=== PATIENT | male | born 1955 | race Two or more races ===

== ENCOUNTER 2017-09-05 22:31 | Inpatient (IN) | payer MEDICAID ==
[~2017-09-05] VITALS: Ht 149.9 cm; Wt 76.1 kg
[2017-09-05] MEDS: levETIRAcetam 500 MG TAB PO SCH ×2 (21:00→22:59)
[2017-09-05] MEDS: SODIUM CHLORIDE 0.9% FLUSH 10 ML FLUSH IV FLUSH SCH (21:00)
[2017-09-05] MEDS: GABAPENTIN 300 MG CAP PO SCH (21:00)
[2017-09-05] MEDS: PREGABALIN 75 MG CAP PO SCH (21:00)
[2017-09-05 22:30] VITALS: BP 120/72; PULSE 90; RESP 16; TEMP 98.8; O2SAT 95
[~2017-09-05 22:31] MED LIST: ACETAMINOPHEN 325 MG TAB PO PRN; ASPI-516 CHEW; GABA300C5 PO; KEPP10002 PO; LEVE500 PO; LYRI75CA PO; PANT20 PO; SENN8.6T19; SODIUM CHLORIDE 0.9% FLUSH 10 ML FLUSH IV FLUSH PRN; TYLE325T PO; VIMP150T PO; XARE20TA PO
[2017-09-06] VITALS: BP 109/67; PULSE 95; RESP 16; TEMP 96.7; O2SAT 93
[2017-09-06 08:56] VITALS: BP 105/95; PULSE 92; RESP 18; TEMP 97.5; O2SAT 95
[2017-09-06] MEDS: SODIUM CHLORIDE 0.9% FLUSH 10 ML FLUSH IV FLUSH SCH ×3 (08:57→20:47)
[2017-09-06] MEDS ORDERED: RIVAROXABAN 20 MG TAB PO SCH (09:00)
[2017-09-06] MEDS ORDERED: ASPIRIN 81 MG CHEW TAB CHEW SCH (09:00)
[2017-09-06] MEDS ORDERED: PANTOPRAZOLE SOD 20 MG DELAYED RELEASE TAB PO SCH (09:00)
[2017-09-06] MEDS: levETIRAcetam 500 MG TAB PO SCH ×4 (09:19→20:38)
[2017-09-06] MEDS: PREGABALIN 75 MG CAP PO SCH ×2 (09:19→20:38)
[2017-09-06 09:50] LABS: AUTOMATED NEUTROPHIL # 8.5 TH/MM3 (1.8-7.7); BASOPHIL # 0.1 TH/MM3 (0-0.2); BASOPHIL % 0.6 % (0.0-2.0); EOSINOPHIL # 0.1 TH/MM3 (0-0.4); EOSINOPHIL % 0.8 % (0.0-4.0); HEMATOCRIT 41.3 % (39.0-51.0); HEMO FLAGS DIFF FINAL; LYMPH % 14.1 % (9.0-44.0); LYMPHOCYTE # 1.6 TH/MM3 (1.0-4.8); MEAN CORPUSCULAR HEMOGLOBIN 27.4 PG (27.0-34.0); MEAN CORPUSCULAR HGB CONC 32.6 % (32.0-36.0); NEUT % 76.5 % (16.0-70.0); PLATELET COUNT 431 TH/MM3 (150-450); RED BLOOD COUNT 4.92 MIL/MM3 (4.50-5.90); RED CELL DISTRIBUTION WIDTH 18.6 % (11.6-17.2); WHITE BLOOD COUNT 11.2 TH/MM3 (4.0-11.0)
[2017-09-06 10:10] LABS: CHLORIDE 104 MEQ/L (98-107); POTASSIUM 3.8 MEQ/L (3.5-5.1); SODIUM (NA) 138 MEQ/L (136-145)
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
[2017-09-06 10:14] LABS: ANION GAP 10 MEQ/L (5-15); BLOOD UREA NITROGEN 11 MG/DL (7-18)
[2017-09-06 10:18] LABS: GLOMERULAR FILTRATION RATE 90 ML/MIN (>89)
[2017-09-06] MEDS ORDERED: FUROSEMIDE 40 MG/4 ML VIAL IV PUSH ONE (10:30)
[2017-09-06] MEDS: LACOSAMIDE 50 MG TAB PO SCH ×2 (10:50→20:38)
[2017-09-06] MEDS: SIMETHICONE 125 MG CHEWABLE TAB PO SCH ×3 (11:04→21:49)
[2017-09-06] MEDS: PANTOPRAZOLE SOD 40 MG DELAYED RELEASE TAB PO SCH (11:04)
[2017-09-06 12:00] VITALS: BP 120/72; PULSE 98; RESP 18; TEMP 99; O2SAT 94
[2017-09-06 16:00] VITALS: BP 105/69; PULSE 100; RESP 18; TEMP 98.3; O2SAT 94
--- NOTE | 2017-09-06 17:32 | ECHRPT ---
Indication: SHORTNESS OF BREATH CONCLUSIONS Normal left ventricular size. Wall thickness is normal. The left ventricular systolic function is normal with an estimated ejection fraction in the range of 55-60%. Ziwme-[id number] mitral valve regurgitation. BP: 105 / 95 HR: 92 Rhythm: Sinus, PVCs MEASUREMENTS (Male / Female) Normal Values Technical Quality:Technically difficult study 2D ECHO LV Diastolic Diameter PLAX 4.3 cm 4.2 - 5.9 / 3.9 - 5.3 cm LV Systolic Diameter PLAX 3.2 cm IVS Diastolic Thickness 1.0 cm 0.6 - 1.0 / 0.6 - 0.9 cm LVPW Diastolic Thickness 0.8 cm 0.6 - 1.0 / 0.6 - 0.9 cm LV Relative Wall Thickness 0.4 LVOT Diameter 2.3 cm Aortic Root Diameter 3.1 cm LA Systolic Diameter LX 1.7 cm 3.0 - 4.0 / 2.7 - 3.8 cm DOPPLER AV Peak Velocity 105.0 cm/s AV Peak Gradient 4.4 mmHg AV Mean Gradient 3.0 mmHg AV Velocity Time Integral 13.7 cm LVOT Peak Velocity 69.2 cm/s LVOT Peak Gradient 1.9 mmHg LVOT Velocity Time Integral 8.6 cm AV Area Cont Eq vti 2.6 cm AV Area Cont Eq pk 2.7 cm Mitral E Point Velocity 70.1 cm/s Mitral A Point Velocity 99.7 cm/s Mitral E to A Ratio 0.7 LV E' Lateral Velocity 10.5 cm/s Mitral E to LV E' Lateral Ratio 6.7 LV E' Septal Velocity 4.2 cm/s Mitral E to LV E' Septal Ratio 16.7 PV Peak Velocity 41.4 cm/s PV Peak Gradient 0.7 mmHg FINDINGS LEFT VENTRICLE Normal left ventricular size. Wall thickness is normal. The left ventricular systolic function is normal with an estimated ejection fraction in the range of 55-60%. RIGHT VENTRICLE Normal right ventricular size and systolic function. LEFT ATRIUM The left atrial size is normal. RIGHT ATRIUM The right atrial size is normal. ATRIAL SEPTUM Normal atrial septal thickness without atrial level shunting by limited color doppler interrogation. AORTA The aortic root and proximal ascending aorta are normal in size on limited imaging. MITRAL VALVE [id number] mitral valve regurgitation. AORTIC VALVE Trileaflet aortic valve. No aortic valve stenosis or regurgitation. TRICUSPID VALVE Structurally normal tricuspid valve. No tricuspid valve stenosis or regurgitation. PULMONARY VALVE The pulmonary valve is not well visualized. VESSELS The inferior vena cava is normal in size. PERICARDIUM No pericardial effusion. Felipa Navarro MD, FACC (Electronically Signed) Final Date:06 September 2017 17:31
[2017-09-06] MEDS: FUROSEMIDE 20 MG/2 ML VIAL IV PUSH SCH (18:06)
[2017-09-06 20:00] VITALS: BP 96/64; PULSE 86; RESP 20; TEMP 98.6; O2SAT 94
[2017-09-06 20:20] LABS: HEMOGLOBIN A1a 1.1 %
[2017-09-06 20:21] LABS: HEMOGLOBIN A1b 0.9 %; HEMOGLOBIN Ao 85.1 %; HEMOGLOBIN LA1C 2.1 %; HEMOGLOBIN P3 3.7 %
[2017-09-06] MEDS: GABAPENTIN 300 MG CAP PO SCH (20:38)
[2017-09-06] MEDS ORDERED: ENOXAPARIN SODIUM 80 MG/0.8 ML SYRINGE SQ SCH (21:00)
[2017-09-07] VITALS: BP 104/62; PULSE 85; RESP 20; TEMP 97.8; O2SAT 95
[2017-09-07] MEDS: SIMETHICONE 125 MG CHEWABLE TAB PO SCH (06:14)
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
[2017-09-07 08:00] VITALS: BP 99/64; PULSE 87; RESP 16; TEMP 97.1; O2SAT 94
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
[2017-09-07] MEDS ORDERED: APIXABAN 5 MG TABLET PO SCH (09:15)
[2017-09-07] MEDS ORDERED: INFLUENZA VIRUS VACCINE (QUADRIVALENT) 0.5 ML SYR IM ONE (10:00)
[2017-09-07] MEDS: FUROSEMIDE 20 MG/2 ML VIAL IV PUSH SCH (10:06)
[2017-09-07] MEDS: levETIRAcetam 500 MG TAB PO SCH ×2 (10:06)
[2017-09-07] MEDS: PREGABALIN 75 MG CAP PO SCH (10:07)
[2017-09-07] MEDS: LACOSAMIDE 50 MG TAB PO SCH (10:07)
[2017-09-07] MEDS: PANTOPRAZOLE SOD 40 MG DELAYED RELEASE TAB PO SCH (10:07)
[2017-09-07] MEDS: SODIUM CHLORIDE 0.9% FLUSH 10 ML FLUSH IV FLUSH SCH (10:08)
[2017-09-07 12:00] VITALS: BP 97/77; PULSE 87; RESP 16; TEMP 98.1; O2SAT 97
[2017-09-07] MEDS ORDERED: LEVE500 PO (12:18)
[2017-09-07] MEDS ORDERED: FURO1TAB62 PO (12:18)
[2017-09-07] MEDS ORDERED: POTA10CA PO (12:18)
[2017-09-07] MEDS ORDERED: VIMP150T PO (12:24)
--- NOTE | 2017-09-07 12:25 | HHI.PR ---
Subjective Remarks Patient states that he is feeling fine. Denies headache. Denies groin pain. I discussed with his sister at bedside. She is unaware of the history but kind his DVT/PE. She is not aware how long ago it was. Patient has been living with her for the past 4 or 5 months. He does take Xarelto daily. Objective Vitals Vital Signs Date Time Temp Pulse Resp B/P (MAP) Pulse Ox O2 Delivery O2 Flow Rate FiO2 09/07/17 11:36 18 09/07/17 11:36 18 09/07/17 08:00 97.1 87 16 99/64 (76) 94 09/07/17 00:00 97.8 85 20 104/62 (76) 95 09/06/17 20:00 98.6 86 20 96/64 (75) 94 09/06/17 16:00 98.3 100 18 105/69 (81) 94 I/O 09/06/17 09/06/17 09/06/17 09/07/17 09/07/17 09/07/17 07:00 15:00 23:00 07:00 15:00 23:00 Intake Total 480 ml 960 ml 240 ml Output Total 250 ml 300 ml Balance 230 ml 660 ml 240 ml Intake Oral 480 ml 960 ml 240 ml Output Urine Total 250 ml 300 ml # Voids 1 2 3 1 # Bowel Movements 0 3 0 1 Result Diagram: 09/06/1716 09/06/1716 Objective Remarks GENERAL: Well-nourished, well-developed patient. SKIN: Warm and dry. HEAD: Normocephalic. Patient has ecchymosis of the left ear. EYES: No scleral icterus. No injection or drainage. NECK: Supple, trachea midline. No JVD or lymphadenopathy. CARDIOVASCULAR: Regular rate and rhythm without murmurs, gallops, or rubs. RESPIRATORY: Breath sounds equal bilaterally. No accessory muscle use. GASTROINTESTINAL: Abdomen soft, non-tender, nondistended. EXTREMITIES: Trace pedal edema. Patient also has small approximately 4 x 4 cm area ecchymosis in the left groin. NEUROLOGICAL: Awake, alert, and oriented x 3. Non-focal. A/P Assessment and Plan -Breakthrough seizure. Appreciate neurology seeing the patient. Patient's sister felt the seizure activity was precipitated by a small argument they had a CT tends to get upset prior to his seizures. Patient is to be increase Vimpat from 150 to 200 mg twice a day and continue Keppra 1500 mg twice a day. I did review the EEG which showed bilateral sharp waves on the right hemisphere as well as the left temporal region but no active seizures. I discussed with neurology Dr. Houston who recommends the patient continue on his regimen of Keppra 1500 mg twice a day and Vimpat 150 mg twice a day. He would like the patient to follow-up with him in his office. Sister is agreeable to the plan. Patient will be discharged home today. -Pedal edema. 2-D echocardiogram reviewed and shows preserved left ventricular ejection fraction. Thus this is likely dependent edema. Discussed with patient and sister to keep his legs elevated. Also prescribed low-dose Lasix which can be used as needed for pedal edema. -Left groin ecchymosis, small hemorrhage seen on abdominal CT scan. Patient did have a blood draw in that area which is the likely source of ecchymosis. He does take Xarelto. Sister is unaware how long it has been since he had the DVT/PE. I do recommend that the patient hold on the Xarelto for 2-3 days. To ensure no further bleeding. -Abdominal pain - due to constipation likely, now resolved. had BM. continue bowel regimen. DC home today. F/u with Dr. Houston. Palma Mora MD Sep 07, 2017 12:25
[2017-09-07] MEDS ORDERED: VIMP200T PO (13:20)
== END 2017-09-07 13:06 | disposition home or self-care (01) | DRG 101 ==
LOC: PHEDDLT 22:31 → PH3B 22:33 → OBSVTOIN 09-07 09:14
PROVIDERS: ADMIT Family Medicine; ATTEND Family Medicine
DX: G40.909 Epilepsy, unspecified, not intractable, without status epilepticus (principal); I69.351 Hemiplegia and hemiparesis following cerebral infarction affecting right dominant side; K44.9 Diaphragmatic hernia without obstruction or gangrene; K59.00 Constipation, unspecified; G89.29 Other chronic pain; M79.606 Pain in leg, unspecified; R60.0 Localized edema; S30.1XXA Contusion of abdominal wall, initial encounter; Z95.828 Presence of other vascular implants and grafts; Z86.718 Personal history of other venous thrombosis and embolism; Z86.711 Personal history of pulmonary embolism; Z87.828 Personal history of other (healed) physical injury and trauma; Z79.01 Long term (current) use of anticoagulants; Z23 Encounter for immunization
CPT/HCPCS: 70450; 71010; 74176; 80048; 80053; 81001; 83036; 83690; 83880; 84132; 84443; 84484; 85025; 85610; 85730; 90471; 90686; 93005; 93306; 95819; 96372; 96374; 96376; 99285; G0008; G0378; G8987-GP; G8988-GP; J1650; J1940; J2060; Q2038

== ENCOUNTER 2017-11-18 21:00 | Observation (INO) | payer MEDICAID ==
[~2017-11-18] VITALS: Ht 149.9 cm; Wt 76.6 kg
[~2017-11-18 21:00] MED LIST changes: -ACETAMINOPHEN 325 MG TAB PO PRN; +ASPI-183 PO; -ASPI-516 CHEW; +FERR325T18 PO; +FURO1TAB62 PO; -KEPP10002 PO; +LEVE10003 PO; +LYRI100C PO; +ONDANSETRON HCL 4 MG/2 ML VIAL IV PUSH PRN; +POTA10CA PO; -VIMP150T PO; +VIMP200T PO
[2017-11-18 21:27] VITALS: O2SAT 96
[2017-11-18 21:45] VITALS: BP 96/65; PULSE 77; RESP 20; TEMP 98.4; O2SAT 95
[2017-11-18 21:54] VITALS: PULSE 79
[2017-11-18 21:56] LABS: TROPONIN I LESS THAN 0.02 NG/ML (0.02-0.05)
[2017-11-18] MEDS: LACOSAMIDE 50 MG TAB PO SCH (23:04)
[2017-11-18] MEDS: FERROUS SULFATE 325 MG (65 MG ELEMENTAL IRON) TAB PO SCH (23:05)
[2017-11-18] MEDS: ACETAMINOPHEN 500 MG CPLT PO PRN (23:05)
[2017-11-18] MEDS: GABAPENTIN 300 MG CAP PO SCH (23:05)
[2017-11-18] MEDS: levETIRAcetam 500 MG TAB PO SCH (23:06)
[2017-11-18] MEDS: SODIUM CHLORIDE 0.9% FLUSH 10 ML FLUSH IV FLUSH SCH (23:06)
[2017-11-19] VITALS (7 sets, daily range): BP systolic 99–119; BP diastolic 53–69; PULSE 73–82; RESP 16–20; TEMP 96.1–98.6; O2SAT 91–95
[2017-11-19 00:30] LABS: TROPONIN I LESS THAN 0.02 NG/ML (0.02-0.05)
--- NOTE | 2017-11-19 08:41 | HHI.HP ---
HPI Service [facility] Primary Care Physician Florentino Fournier M.D. Admission Diagnosis Chest pain Diagnoses: (1) Chest pain Chief Complaint: Chest pain Travel History International Travel<30 Days: No Contact w/Intl Traveler <30 Da: No Traveled to Known Affected Are: No History of Present Illness This is a 62-year-old male patient with a known medical history of traumatic brain injury as a child and seizure history who presented to the ED with complaints of left-sided chest pain and shaking tremor for two hours. Patient is Yakut speaking and an putty and patch worker was used. Patient states that the pain is located in his midsternal chest, characterized as a pressure sensation, radiates down his right and left leg. Denied any associated shortness of breath , nausea, vomiting or diaphoresis. Spoke to at bedside who states that patient suffers from chronic pain normally worse in his right lower extremity. But over the past two weeks she says he's been having increasing and worsening pain in his right chest, arms and abdomen. Denies any recent illness including fever, chills, cough, shortness of breath, nausea, vomiting or diarrhea. 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 Review of Systems Constitutional: DENIES: Fatigue, Fever Eyes: DENIES: Blurred vision, Diplopia Respiratory: DENIES: Cough, Sputum production, Shortness of breath Cardiovascular: COMPLAINS OF: Chest pain, DENIES: Palpitations Gastrointestinal: COMPLAINS OF: Abdominal pain, DENIES: Black stools, Bloody stools, Constipation, Diarrhea, Nausea, Vomiting Immunologic/allergic: DENIES: Eczema Neurologic: DENIES: Abnormal gait Psychiatric: COMPLAINS OF: Anxiety Except as stated in HPI: all other systems reviewed are Neg Past Family Social History Past Medical History Arthritis Anxiety and depression Hyperlipidemia History of CVA with right sided weakness residual Hiatal hernia History of seizures History of migraines Past Surgical History Right thigh felt her Brain surgery as a child Reported Medications Active Lasix (Furosemide) 20 Mg Tab 20 Mg PO DAILY PRN Reported Ferrous Sulfate 325 Mg (65 Mg Iron) Tablet 325 Mg PO TIDPC Gabapentin 300 Mg Cap 300 Mg PO HS Vimpat (Lacosamide) 200 Mg Tab Mg PO Lyrica (Pregabalin) 100 Mg Cap 100 Mg PO TID Levetiracetam 1,000 Mg Tab 1,500 Mg PO BID Aspirin 325 Mg Tab 325 Mg PO DAILY Xarelto (Rivaroxaban) 20 Mg Tab 20 Mg PO DAILY Protonix (Pantoprazole Sodium) 20 Mg Tab 20 Mg PO DAILY Allergies: Coded Allergies: No Known Allergies (Unverified , 09/05/17) Active Ordered Medications Current Medications Medications (Trade) Dose Ordered Sig/Jacey Route Start Time Stop Time Status Last Admin (NS Flush) 2 ml UNSCH PRN IV FLUSH 11/18/17 18:15 (NS Flush) 2 ml BID IV FLUSH 11/18/17 21:00 11/19/17 10:25 (Tylenol) 500 mg Q4H PRN PO 11/18/17 18:15 11/19/17 10:24 (Zofran Inj) 4 mg Q6H PRN IV PUSH 11/18/17 18:15 (Ferrous Sulfate) 325 mg TIDPC PO 11/18/17 18:30 11/19/17 10:25 (Neurontin) 300 mg HS PO 11/18/17 21:00 11/18/17 23:05 (Keppra) 1,500 mg BID PO 11/18/17 21:00 11/19/17 10:25 (Protonix) 20 mg DAILY PO 11/19/17 09:00 11/19/17 10:25 (Lyrica) 100 mg TID PO 11/19/17 09:00 11/19/17 10:25 (Xarelto) 20 mg DAILY PO 11/19/17 09:00 11/19/17 10:25 (Vimpat) 150 mg BID PO 11/18/17 21:00 11/18/17 23:04 (Aspirin Chew) 81 mg DAILY CHEW 11/19/17 09:00 11/19/17 10:25 ( Gastroview Liq) 18 ml ONCE ONCE PO 11/19/17 12:00 11/19/17 12:01 Family History Denies any significant family medical history. Social History Denies any use of tobacco, alcohol or illicit drugs. Physical Exam Vital Signs Vital Signs Date Time Temp Pulse Resp B/P (MAP) Pulse Ox O2 Delivery O2 Flow Rate FiO2 11/19/17 04:00 98.6 76 20 104/60 (75) 95 11/19/17 00:00 97.8 73 20 108/57 (74) 94 11/18/17 21:54 79 11/18/17 21:45 98.4 77 20 96/65 (75) 95 11/18/17 21:27 96 Nasal Cannula 2.00 11/18/17 21:15 95 Nasal Cannula 2.00 Physical Exam GENERAL: Well-nourished, well-developed patient in NAD. Yakut speaking SKIN: Warm and dry. No rash. HEAD: Normocephalic. Atraumatic. EYES: Pupils equal and round. No scleral icterus. No injection or drainage. ENT: No nasal bleeding or discharge. Mucous membranes pink and moist. NECK: Supple. Trachea midline. CARDIOVASCULAR: Regular rate and rhythm. S1, S2 noted. No murmur appreciated. No reproducible chest pain to palpation. RESPIRATORY: No accessory muscle use. Clear to auscultation. Breath sounds equal bilaterally. GASTROINTESTINAL: Abdomen soft. Round. Tenderness to palpation in right upper quadrant, Aguilar sign positive. Normoactive bowel sounds x4. MUSCULOSKELETAL: No obvious deformities. Extremities without clubbing, cyanosis , or edema. NEUROLOGICAL: Awake and alert. No obvious cranial nerve deficits. Motor grossly within normal limits. 5/5 muscle strength in bilateral upper and lower extremities. Normal speech. PSYCHIATRIC: Appropriate mood and affect; insight and judgment normal. Laboratory Laboratory Tests Test 11/18/17 21:25 11/19/17 00:00 11/19/17 05:45 Total Creatine Kinase 42 42 Troponin I LESS THAN 0.02 LESS THAN 0.02 Imaging Last Impressions Myocardial Perfusion Scan Nuc Med 11/19/17 0000 Signed Impressions: Service Date/Time: Sunday, November 19, 2017 11:32 - CONCLUSION: Fixed defect inferior wall suggesting infarct with minimal wall hypokinesis.. RISK CATEGORY : Low (<1%% Annual Mortality Rate) William Darnell MD FACR Abdomen/Pelvis CT 11/19/17 0000 Signed Impressions: Service Date/Time: Sunday, November 19, 2017 12:35 - CONCLUSION: 1. Moderate sized hiatal hernia. 2. Atelectatic changes in the left lower lobe. 3. Minimal pericardial effusion. 4. Enlargement of the prostate. 5. Incidental IVC filter. 6. No findings to indicate bowel obstruction. Willi Darnell MD Septic Shock Reassessment Septic shock perfusion: reassessment completed Caprini VTE Risk Assessment Caprini VTE Risk Assessment: No/Low Risk (score <= 1) Caprini Risk Assessment Model Point Value = 1 Point Value = 2 Point Value = 3 Point Value = 5 Age 41-60 Minor surgery BMI > 25 kg/m2 Swollen legs Varicose veins or History of unexplained or recurrent spontaneous Oral contraceptives or hormone replacement Sepsis (< 1 month) Serious lung disease, including pneumonia (< 1 month) Abnormal pulmonary function Acute myocardial infarction Congestive heart failure (< 1 month) History of inflammatory bowel disease Medical patient at bed rest Age 61-74 Arthroscopic surgery Major open surgery (> 45 min) Laparoscopic surgery (> 45 min) Malignancy Confined to bed (> 72 hours) Immobilizing plaster cast Central venous access Age >= 75 History of VTE Family history of VTE Factor V Leiden Prothrombin [id number] Lupus anticoagulant Anticardiolipin antibodies Elevated serum homocysteine Heparin-induced thrombocytopenia Other congenital or acquired thrombophilia Stroke (< 1 month) Elective arthroplasty Hip, pelvis, or leg fracture Acute spinal cord injury (< 1 month) Prophylaxis Regimen Total Risk Factor Score Risk Level Prophylaxis Regimen 0-1 Low Early ambulation 2 Moderate Order ONE of the following: *Sequential Compression Device (SCD) *Heparin 5000 units SQ BID 3-4 Higher Order ONE of the following medications: *Heparin 5000 units SQ TID *Enoxaparin/Lovenox 40 mg SQ daily (WT < 150 kg, CrCl > 30 mL/min) *Enoxaparin/Lovenox 30 mg SQ daily (WT < 150 kg, CrCl > 10-29 mL/min) *Enoxaparin/Lovenox 30 mg SQ BID (WT < 150 kg, CrCl > 30 mL/min) AND/OR *Sequential Compression Device (SCD) 5 or more Highest Order ONE of the following medications: *Heparin 5000 units SQ TID (Preferred with Epidurals) *Enoxaparin/Lovenox 40 mg SQ daily (WT < 150 kg, CrCl > 30 mL/min) *Enoxaparin/Lovenox 30 mg SQ daily (WT < 150 kg, CrCl > 10-29 mL/min) *Enoxaparin/Lovenox 30 mg SQ BID (WT < 150 kg, CrCl > 30 mL/min) AND *Sequential Compression Device (SCD) Assessment and Plan Problem List: (1) Chest pain ICD Code: R07.9 - Chest pain, unspecified Plan: Patient has been admitted to the chest pain center for observation. Serial EKGs and serial troponins have been ordered for ruling out ACS purposes. Serial troponins are all flat. Lipid panel is normal. EKG reviewed showing normal sinus rhythm, controlled heart rate, no ST changes to indicate ischemia. Chest pain has resolved. Although patient still complains of right upper quadrant abdominal pain. Supplemental O2 as needed. Chest x-ray reviewed showing no acute cardiopulmonary disease Patient will undergo a Lexiscan to further rule out any presence of ischemia. Further hospitalization and treatment plan will depend on nuclear imaging results. Patient is understanding of plan at this time. (2) Abdominal pain ICD Code: R10.9 - Unspecified abdominal pain Plan: CT abdomen/pelvis performed and reviewed showing moderate hiatal hernia. Spoke to general surgery about patient condition and OK to follow up with GI in the outpatient setting for possible EGD. Abdominal pain has improved. Will give him viscous lidocaine, Zantac and PPI. Recommendations to follow up with GI in the outpatient setting. DVT: SCDs. Xarelto. Assessment and Plan Nuclear stress test performed showing fixed defect inferior wall suggesting infarct with minimal wall hypokinesis. No redistribution to suggest ischemia. Bianca Lo Nov 19, 2017 08:41
--- NOTE | 2017-11-19 08:41 | EKG ---
Date Performed: 11/18/2017 Time Performed: 23:35:05 PTAGE: 62 years EKG: Sinus rhythm WITH OCCASIONAL VENTRICULAR PREMATURE COMPLEXES BORDERLINE LEFT AXIS DEVIATION BORDERLINE ECG PREVIOUS TRACING : 11/18/2017 21.13 No change from previous tracing noted. DOCTOR: Renan Randall Interpretating Date/Time 11/19/2017 08:41:13
[2017-11-19] MEDS: LACOSAMIDE 50 MG TAB PO SCH ×2 (09:00→20:34)
[2017-11-19] MEDS ORDERED: ASPIRIN 325 MG TAB PO SCH (09:00)
[2017-11-19] MEDS ORDERED: PNEUMOCOCCAL POLYVALENT INJ 25 MCG/0.5 ML SYR IM ONE (10:00)
[2017-11-19] MEDS: ACETAMINOPHEN 500 MG CPLT PO PRN (10:24)
[2017-11-19] MEDS: RIVAROXABAN 20 MG TAB PO SCH (10:25)
[2017-11-19] MEDS: levETIRAcetam 500 MG TAB PO SCH ×2 (10:25→20:35)
[2017-11-19] MEDS: ASPIRIN 81 MG CHEW TAB CHEW SCH (10:25)
[2017-11-19] MEDS: FERROUS SULFATE 325 MG (65 MG ELEMENTAL IRON) TAB PO SCH ×3 (10:25→17:47)
[2017-11-19] MEDS: PANTOPRAZOLE SOD 20 MG DELAYED RELEASE TAB PO SCH (10:25)
[2017-11-19] MEDS: SODIUM CHLORIDE 0.9% FLUSH 10 ML FLUSH IV FLUSH SCH ×2 (10:25→20:40)
[2017-11-19] MEDS: PREGABALIN 100 MG CAP PO SCH ×3 (10:25→17:48)
[2017-11-19 10:31] LABS: CHOLESTEROL/ HDL RATIO 4.64 RATIO; HDL CHOLESTEROL 37.5 MG/DL (40.0-60.0)
[2017-11-19] MEDS ORDERED: REGADENOSON INJ 0.4 MG/5 ML SYR IV ONE (11:41)
[2017-11-19] MEDS ORDERED: DIATRIZOATE MEGLUM/DIATRIZOATE SOD 9 ML CUP PO ONE ×2 (12:00→15:00)
[2017-11-19] MEDS ORDERED: IOHEXOL 350 MG/ML 10 ML VIAL (for RAD DIAG) IVCONTRAST ONE (12:56)
--- NOTE | 2017-11-19 13:00 | RADRPT ---
EXAM DATE/TIME: 11/19/2017 11:32 [facility] COMPARISON: No previous studies available for comparison. INDICATIONS : Left sided chest pain. Angina. DOSE: 25.4 mCi Tc99m Myoview at stress. 8.5 mCi Tc99m Myoview at rest. 0.4 mg Lexiscan STRESS SYMPTOMS: Dyspnea and nausea. EJECTION FRACTION: 64% MEDICAL HISTORY : Stroke. Traumatic brain injury. SURGICAL HISTORY : Brain. ENCOUNTER: Initial ACUITY: 1 day PAIN SCALE: 5/10 LOCATION: Left chest TECHNIQUE: The patient underwent pharmacologic stress with infusion of prescribed dose. Continuous ECG tracing was monitored during stress. Gated SPECT imaging was performed after stress and conventional SPECT i maging was performed at rest. The examination was performed on a SPECT/CT scanner, both attenuation and non-corrected datasets were reviewed. FINDINGS: Large fixed defect is seen in the inferior septal wall extending to the base. There is no redistribu tion suggest ischemia. Moderate gut activity does obscure the inferior wall. CONCLUSION: Fixed defect inferior wall suggesting infarct with minimal wall hypokinesis.. RISK CATEGORY: Low (<1% Annual Mortality Rate) William Darnell MD FACR on November 19, 2017 at 12:57 Board Certified Radiologist. This report was verified electronically.
--- NOTE | 2017-11-19 13:14 | RADRPT ---
EXAM DATE/TIME: 11/19/2017 12:35 [facility] COMPARISON: CT BRAIN W/O CONTRAST, November 18, 2017, 15:08. INDICATIONS : Abdominal distention. IV CONTRAST: 80 cc Omnipaque 350 (iohexol) IV ORAL CONTRAST: No oral contrast ingested. RADIATION DOSE: 13.25 CTDIvol (mGy) MEDICAL HISTORY : Cerebrovascular disease. Seizures. Hernia, hiatal.Traumatic brain injury. SURGICAL HISTORY : Brain surgery. ENCOUNTER: Initial ACUITY: 1 day PAIN SCALE: 7/10 LOCATION: Abdomen. TECHNIQUE: Volumetric scanning of the abdomen and pelvis was performed. Using automated exposure control and ad justment of the mA and/or kV according to patient size, radiation dose was kept as low as reasonably achievable to obtain optimal diagnostic quality images. DICOM format image data is available electro nically for review and comparison. FINDINGS: Imaging through the lung bases demonstrates a large hiatal hernia. There is moderate atelectatic zimmer ge in the lung bases. There is minimal pericardial effusion. The appearance of the liver, spleen, pancreas, adrenal glands and kidneys is within normal limits. The abdominal aorta is normal in caliber. Note is made of an IVC filter. There is no free air. There is no free fluid. The loops of small and large bowel in the upper abdomen are unremarkable. There is no free fluid within the pelvis. No iliac or inguinal adenopathy is seen. The loops of small and large bowel within the pelvis are unremarkable. The prostate is enlarged measuring 5.1 x 4.0 cm. There is central calcification. There degenerative changes within the spine. CONCLUSION: 1. Moderate sized hiatal hernia. 2. Atelectatic changes in the left lower lobe. 3. Minimal pericardial effusion. 4. Enlargement of the prostate. 5. Incidental IVC filter. 6. No findings to indicate bowel obstruction. Willi Darnell MD on November 19, 2017 at 13:08 Board Certified Radiologist. This report was verified electronically.
--- NOTE | 2017-11-19 13:27 | TR ---
Date Performed: 11/19/2017 Time Performed: 11:54:44 DOCTOR: Chago Crawley DRUG LIST: CLINICAL HISTORY: CHEST PAIN REASON FOR TEST: Chest pain REASON FOR ENDING: OBSERVATION: CONCLUSION: Lexiscan stress test was performed under standard four minute protocol. Radionuclid e was injected one minute prior to ending the test. No electrocardiographic abormalities were present to suggest ischemia. Nuclear imaging and interpretation are pending. COMMENTS:
--- NOTE | 2017-11-19 13:42 | EKG ---
Date Performed: 11/18/2017 Time Performed: 21:13:13 PTAGE: 62 years EKG: Sinus rhythm MARKED LEFT AXIS DEVIATION ABNORMAL ECG Compared to PREVIOUS TRACING , marked baseline artifact has resolved. DOCTOR: Chago Crawley Interpretating Date/Time 11/19/2017 13:40:53
[2017-11-19] MEDS ORDERED: SENNOSIDES 8.6 MG TAB PO PRN (15:30)
[2017-11-19] MEDS ORDERED: BISACODYL 10 MG SUPP RECTAL PRN (15:30)
[2017-11-19] MEDS ORDERED: MAGNESIUM HYDROXIDE SUSP 30 ML CUP PO PRN (15:30)
[2017-11-19] MEDS ORDERED: LIDOCAINE VISCOUS 2% SOLN 15 ML UDC SWISH-SWAL PRN (16:00)
--- NOTE | 2017-11-19 16:21 | HHI.FF ---
Face to Face Verification Diagnosis: (1) Chest pain (2) Abdominal pain Home Health Nursing Order: Medical education Signs/symptoms of disease process Medication education-adverse effect Nursing assessment with vital signs Home Health Aide Order: To Assist In: Bathing and personal care I have seen patient Manfred Stern on 11/19/17. My clinical findings support the need for the requested home health care services because: Ltd mobility - disease progression Limited ability to care for self I certify that my clinical findings support that this patient is homebound because: Impaired cognitive ability/safety Unsteady gait/balance Bianca Lo Nov 19, 2017 16:21
[2017-11-19] MEDS ORDERED: Ranitidine Liq PO (16:23)
[2017-11-19] MEDS ORDERED: PERI PO (16:23)
[2017-11-19] MEDS ORDERED: LIDO2SOL11 SWISH-SWAL (16:23)
[2017-11-19] MEDS: FAMOTIDINE 20 MG TAB PO SCH (20:34)
[2017-11-19] MEDS: GABAPENTIN 300 MG CAP PO SCH (20:34)
[2017-11-19] MEDS: DOCUSATE SODIUM 50 MG/SENNA 8.6 MG TAB PO SCH (20:34)
[2017-11-20] VITALS (8 sets, daily range): BP systolic 102–120; BP diastolic 56–70; PULSE 76–81; RESP 16–18; TEMP 96.8–98.8; O2SAT 90–96
[2017-11-20] MEDS: FAMOTIDINE 20 MG TAB PO SCH ×2 (08:46→21:59)
[2017-11-20] MEDS: ASPIRIN 81 MG CHEW TAB CHEW SCH (08:46)
[2017-11-20] MEDS: PREGABALIN 100 MG CAP PO SCH ×3 (08:46→17:35)
[2017-11-20] MEDS: RIVAROXABAN 20 MG TAB PO SCH (08:46)
[2017-11-20] MEDS: levETIRAcetam 500 MG TAB PO SCH ×2 (08:47→21:59)
[2017-11-20] MEDS: FERROUS SULFATE 325 MG (65 MG ELEMENTAL IRON) TAB PO SCH ×3 (08:47→17:34)
[2017-11-20] MEDS: DOCUSATE SODIUM 50 MG/SENNA 8.6 MG TAB PO SCH ×2 (08:47→21:59)
[2017-11-20] MEDS: SODIUM CHLORIDE 0.9% FLUSH 10 ML FLUSH IV FLUSH SCH ×2 (08:48→21:59)
[2017-11-20] MEDS: PANTOPRAZOLE SOD 20 MG DELAYED RELEASE TAB PO SCH (08:48)
[2017-11-20] MEDS: LACOSAMIDE 50 MG TAB PO SCH ×2 (08:48→21:58)
--- NOTE | 2017-11-20 10:50 | HHI.PR ---
Subjective Remarks Follow-up left-sided chest pain and abdominal pain. Should seen and examined, lying in bed comfortably sleeping. Awakens to voice, does complain of continued abdominal pain to palpation, more mild in nature. No documented bowel movement, continue bowel regimen. Objective Vitals Vital Signs Date Time Temp Pulse Resp B/P (MAP) Pulse Ox O2 Delivery O2 Flow Rate FiO2 11/20/17 09:30 Room Air 2.00 21 11/20/17 08:00 98.2 81 16 120/62 (81) 93 11/20/17 04:00 98.8 76 16 104/62 (76) 90 11/20/17 00:00 98.5 78 16 102/63 (76) 94 11/19/17 20:32 93 21 11/19/17 20:00 82 11/19/17 20:00 Room Air 11/19/17 20:00 96.1 80 18 100/53 (69) 91 11/19/17 18:54 18 11/19/17 14:01 97.0 80 18 119/69 (86) 95 11/19/17 11:51 Nasal Cannula 2.00 11/19/17 11:31 18 11/19/17 11:00 94 Nasal Cannula 2.00 I/O 11/19/17 11/19/17 11/19/17 11/20/17 11/20/17 11/20/17 07:00 15:00 23:00 07:00 15:00 23:00 Intake Total 60 ml 120 ml Output Total 700 ml 400 ml Balance 60 ml -700 ml -280 ml Intake Oral 60 ml 120 ml Output Urine Total 700 ml 400 ml # Voids 0 1 # Bowel Movements 0 Imaging Last Impressions Myocardial Perfusion Scan Nuc Med 11/19/17 0000 Signed Impressions: Service Date/Time: Sunday, November 19, 2017 11:32 - CONCLUSION: Fixed defect inferior wall suggesting infarct with minimal wall hypokinesis.. RISK CATEGORY : Low (<1%% Annual Mortality Rate) William Darnell MD FACR Abdomen/Pelvis CT 11/19/17 0000 Signed Impressions: Service Date/Time: Sunday, November 19, 2017 12:35 - CONCLUSION: 1. Moderate sized hiatal hernia. 2. Atelectatic changes in the left lower lobe. 3. Minimal pericardial effusion. 4. Enlargement of the prostate. 5. Incidental IVC filter. 6. No findings to indicate bowel obstruction. Willi Darnell MD Objective Remarks GENERAL: Well-nourished, well-developed patient in NAD. Amharic speaking SKIN: Warm and dry. No rash. HEAD: Normocephalic. Atraumatic. EYES: Pupils equal and round. No scleral icterus. No injection or drainage. ENT: No nasal bleeding or discharge. Mucous membranes pink and moist. NECK: Supple. Trachea midline. CARDIOVASCULAR: Regular rate and rhythm. S1, S2 noted. No murmur appreciated. No reproducible chest pain to palpation. RESPIRATORY: No accessory muscle use. Clear to auscultation. Breath sounds equal bilaterally. GASTROINTESTINAL: Abdomen soft. Round. Tenderness to palpation in right upper quadrant, Aguilar sign positive. Normoactive bowel sounds x4. MUSCULOSKELETAL: No obvious deformities. Extremities without clubbing, cyanosis , or edema. NEUROLOGICAL: Awake and alert. No obvious cranial nerve deficits. Motor grossly within normal limits. 5/5 muscle strength in bilateral upper and lower extremities. Normal speech. PSYCHIATRIC: Appropriate mood and affect; insight and judgment normal. A/P Problem List: (1) Chest pain ICD Code: R07.9 - Chest pain, unspecified Plan: Patient has been admitted to the chest pain center for observation. Serial EKGs and serial troponins have been ordered for ruling out ACS purposes. Serial troponins are all flat. Lipid panel is normal. EKG reviewed showing normal sinus rhythm, controlled heart rate, no ST changes to indicate ischemia. Chest pain has resolved. Although patient still complains of right upper quadrant abdominal pain to palpation. Supplemental O2 as needed. Chest x-ray reviewed showing no acute cardiopulmonary disease Patient underwent Lexiscan which showed no presence of ischemia. (2) Abdominal pain ICD Code: R10.9 - Unspecified abdominal pain Plan: CT abdomen/pelvis performed and reviewed showing moderate hiatal hernia. Spoke to general surgery about patient condition and OK to follow up with GI in the outpatient setting for possible EGD. Started on viscous lidocaine, Zantac and PPI. Recommendations to follow up with GI in the outpatient setting. DVT: SCDs. Xarelto. Discharge Planning Discharge has been ordered last evening, although there are barriers to discharge regarding placement and inability for family to care for patient at home. Case management assisting. Bianca Lo Nov 20, 2017 10:50
[2017-11-20] MEDS: GABAPENTIN 300 MG CAP PO SCH (21:58)
[2017-11-21] VITALS (7 sets, daily range): BP systolic 99–128; BP diastolic 58–84; PULSE 64–103; RESP 16–18; TEMP 96.7–99.5; O2SAT 92–95
[2017-11-21] MEDS: DOCUSATE SODIUM 50 MG/SENNA 8.6 MG TAB PO SCH ×2 (09:00→21:35)
[2017-11-21] MEDS: SODIUM CHLORIDE 0.9% FLUSH 10 ML FLUSH IV FLUSH SCH ×2 (09:34→21:35)
[2017-11-21] MEDS: FAMOTIDINE 20 MG TAB PO SCH ×2 (09:34→21:34)
[2017-11-21] MEDS: PANTOPRAZOLE SOD 20 MG DELAYED RELEASE TAB PO SCH (09:34)
[2017-11-21] MEDS: PREGABALIN 100 MG CAP PO SCH ×3 (09:34→18:22)
[2017-11-21] MEDS: RIVAROXABAN 20 MG TAB PO SCH (09:35)
[2017-11-21] MEDS: ASPIRIN 81 MG CHEW TAB CHEW SCH (09:35)
[2017-11-21] MEDS: levETIRAcetam 500 MG TAB PO SCH ×2 (09:35→21:35)
[2017-11-21] MEDS: LACOSAMIDE 50 MG TAB PO SCH ×2 (09:35→21:34)
[2017-11-21] MEDS: FERROUS SULFATE 325 MG (65 MG ELEMENTAL IRON) TAB PO SCH ×3 (09:35→18:22)
--- NOTE | 2017-11-21 12:36 | HHI.PR ---
Subjective Remarks Follow-up left-sided chest pain and abdominal pain. Patient seen and examined, lying in bed comfortably. Denies complain of abdominal pain. Sister at bedside and updated about patient condition. Sister believes she is unable to take care of her brother due to health reasons an upcoming surgery. Case management is assisting regarding placement. Objective Vitals Vital Signs Date Time Temp Pulse Resp B/P (MAP) Pulse Ox O2 Delivery O2 Flow Rate FiO2 11/21/17 12:00 96.7 82 16 113/58 (76) 94 11/21/17 10:33 18 11/21/17 08:00 97.3 77 16 99/60 (73) 95 11/21/17 07:00 Room Air 2.00 21 11/21/17 04:00 97.2 75 16 102/64 (77) 95 11/21/17 00:00 96.7 64 16 110/67 (81) 94 11/20/17 21:10 94 21 11/20/17 20:30 78 11/20/17 20:00 97.1 77 18 108/70 (83) 93 11/20/17 19:37 Room Air 11/20/17 16:00 96.8 80 16 112/63 (79) 96 I/O 11/20/17 11/20/17 11/20/17 11/21/17 11/21/17 11/21/17 07:00 15:00 23:00 07:00 15:00 23:00 Intake Total 120 ml 600 ml 120 ml Output Total 400 ml 1200 ml 600 ml Balance -280 ml -600 ml -480 ml Intake Oral 120 ml 600 ml 120 ml Output Urine Total 400 ml 1200 ml 600 ml # Voids 1 # Bowel Movements 0 Imaging Last Impressions Myocardial Perfusion Scan Nuc Med 11/19/17 0000 Signed Impressions: Service Date/Time: Sunday, November 19, 2017 11:32 - CONCLUSION: Fixed defect inferior wall suggesting infarct with minimal wall hypokinesis.. RISK CATEGORY : Low (<1%% Annual Mortality Rate) William Darnell MD FACR Abdomen/Pelvis CT 11/19/17 0000 Signed Impressions: Service Date/Time: Sunday, November 19, 2017 12:35 - CONCLUSION: 1. Moderate sized hiatal hernia. 2. Atelectatic changes in the left lower lobe. 3. Minimal pericardial effusion. 4. Enlargement of the prostate. 5. Incidental IVC filter. 6. No findings to indicate bowel obstruction. Willi Darnell MD Objective Remarks GENERAL: Well-nourished, well-developed patient in NAD. [place] speaking. SKIN: Warm and dry. No rash. HEAD: Normocephalic. Atraumatic. EYES: Pupils equal and round. No scleral icterus. No injection or drainage. ENT: No nasal bleeding or discharge. Mucous membranes pink and moist. NECK: Supple. Trachea midline. CARDIOVASCULAR: Regular rate and rhythm. S1, S2 noted. No murmur appreciated. No reproducible chest pain to palpation. RESPIRATORY: No accessory muscle use. Clear to auscultation. Breath sounds equal bilaterally. GASTROINTESTINAL: Abdomen soft. Round. Mild tenderness to palpation Normoactive bowel sounds x4. MUSCULOSKELETAL: No obvious deformities. Extremities without clubbing, cyanosis , or edema. NEUROLOGICAL: Awake and alert. No obvious cranial nerve deficits. 3/5 right upper and lower muscle strength. 5/5 muscle strength in left upper extremities. Normal speech. A/P Problem List: (1) Chest pain ICD Code: R07.9 - Chest pain, unspecified Plan: Patient has been admitted to the chest pain center for observation. Serial EKGs and serial troponins have been ordered for ruling out ACS purposes. Serial troponins are all flat. Lipid panel is normal. EKG reviewed showing normal sinus rhythm, controlled heart rate, no ST changes to indicate ischemia. Chest pain has resolved. Although patient still complains of right upper quadrant abdominal pain to palpation. Supplemental O2 as needed. Chest x-ray reviewed showing no acute cardiopulmonary disease Patient underwent Lexiscan which showed no presence of ischemia. Chest pain resolved. (2) Abdominal pain ICD Code: R10.9 - Unspecified abdominal pain Plan: CT abdomen/pelvis performed and reviewed showing moderate hiatal hernia. Spoke to general surgery about patient condition and OK to follow up with GI in the outpatient setting for possible EGD. Started on viscous lidocaine, Zantac and PPI. Recommendations to follow up with GI in the outpatient setting. Abdominal pain has resolved. Psychiatry and to see patient today. Spoke with daughter at length regarding patient's mental capacity and ability to make decisions. Patient has been taking incompetent. Sister is health care surrogate. DVT: SCDs. Xarelto. Discharge Planning Discharge has been ordered 2 days ago, although there are barriers to discharge regarding placement and inability for family to care for patient at home. Case management assisting. Binaca Lo Nov 21, 2017 12:36
--- NOTE | 2017-11-21 13:00 | PD.PSY.CON ---
Provisional Diagnosis Admission Date Nov 18, 2017 at 21:01 [place]. Medical brain injury [id number] History of Present Illness Service Psychiatry Consult Requested By Attending Curt. Reason for Consult Assessment Primary Care Physician Florentino Fournier M.D. HPI Patient is a 62-year-old [place]ian male comes here for chest pain and abdominal pain. Asked to see to assess competency. 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 Patient did sustain a treatment break and interested child has had significant seizure disorder since then. Patient speaks mainly Malaysian, sister has assisted with the interpretation. Patient is alert to self, he knows his hospital in [address] Patient seems somewhat slow in responses to why he is here and where he will be going when he is discharged. He appears quite bonded to assist her. Though she at this time is unable For him because of medical/surgical conditions of her own. He denies suicidality denies voices. He denies any prior psychiatric contact or hospitalizations. Stating further history from patient's sister is my opinion patient does not have capacity to make appropriate decisions concerning his own care. I feel that perhaps the sister should be appointed health care surrogate. Thanks for consult will set off the present time Review of Systems ROS Limitations: Altered Mental Status Past Family Social History Coded Allergies: No Known Allergies (Unverified , 09/05/17) Active Scripts [Famotidine] 150 MG/10 ML SYRP No Conflict Check, 150 MG PO Q12HR for 30 Days, # 1 BOTTLE Prov:Bianca Lo 11/19/17 Sennosides-Docusate Sodium (Gnp Senna Plus 8.6-50 mg) 8.6 Mg-50 Mg Tab, 1 TAB PO BID for constipation for 30 Days, #60 TAB Prov:Bianca Lo 11/19/17 Lidocaine Viscous 2% Liq (Lidocaine Viscous 2% Liq) 2 % Liq, 15 ML SWISH-SWAL Q4H Y for reflux for 30 Days, #1 BOTTLE Prov:Bianca Lo 11/19/17 Furosemide (Lasix) 20 Mg Tab, 20 MG PO DAILY Y for swelling, #30 TAB 0 Refills Prov:Palma Mora MD 09/07/17 Reported Medications Ferrous Sulfate (Ferrous Sulfate) 325 Mg (65 Mg Iron) Tablet, 325 MG PO TIDPC for Nutritional Supplement, #90 TAB 0 Refills 11/18/17 Gabapentin (Gabapentin) 300 Mg Cap, 300 MG PO HS, #30 CAP 0 Refills 11/18/17 Lacosamide (Vimpat) 200 Mg Tab, MG PO for Control Seizures, #60 TAB 0 Refills 11/18/17 Pregabalin (Lyrica) 100 Mg Cap, 100 MG PO TID, #90 CAP 0 Refills 11/18/17 Levetiracetam (Levetiracetam) 1,000 Mg Tab, 1500 MG PO BID for Control Seizures , #60 TAB 0 Refills 11/18/17 Aspirin (Aspirin) 325 Mg Tab, 325 MG PO DAILY, #30 TAB 0 Refills 11/18/17 Rivaroxaban (Xarelto) 20 Mg Tab, 20 MG PO DAILY for Blood Clot Prevention, TAB 0 Refills 11/18/17 Pantoprazole (Protonix) 20 Mg Tab, 20 MG PO DAILY for Reflux, #30 TAB 0 Refills 09/05/17 Discontinued Scripts Lacosamide (Vimpat) 200 Mg Tab, 200 MG PO BID for Control Seizures, #60 TAB 0 Refills Prov:Palma Mora MD 09/07/17 Potassium Chloride ER (Potassium Chloride ER) 10 Meq Cap, 10 MEQ PO DAILY Y for when taking lasix, #30 CAP 0 Refills Prov:Palma Mora MD 09/07/17 Levetiracetam (Keppra) 500 Mg Tab, 500 MG PO BID for seizure, #60 TAB Prov:Palma Mora MD 09/07/17 Levetiracetam (Keppra) 500 Mg Tab, 1000 MG PO BID for seizure, #120 TAB Prov:Palma Mora MD 09/07/17 Current Medications Medications (Trade) Dose Ordered Sig/Jacey Route Start Time Stop Time Status Last Admin (NS Flush) 2 ml UNSCH PRN IV FLUSH 11/18/17 18:15 (NS Flush) 2 ml BID IV FLUSH 11/18/17 21:00 11/21/17 09:34 (Tylenol) 500 mg Q4H PRN PO 11/18/17 18:15 11/19/17 10:24 (Zofran Inj) 4 mg Q6H PRN IV PUSH 11/18/17 18:15 11/19/17 13:59 (Ferrous Sulfate) 325 mg TIDPC PO 11/18/17 18:30 11/21/17 09:35 (Neurontin) 300 mg HS PO 11/18/17 21:00 11/20/17 21:58 (Keppra) 1,500 mg BID PO 11/18/17 21:00 11/21/17 09:35 (Protonix) 20 mg DAILY PO 11/19/17 09:00 11/21/17 09:34 (Lyrica) 100 mg TID PO 11/19/17 09:00 11/21/17 09:34 (Xarelto) 20 mg DAILY PO 11/19/17 09:00 11/21/17 09:35 (Vimpat) 150 mg BID PO 11/18/17 21:00 11/21/17 09:35 (Aspirin Chew) 81 mg DAILY CHEW 11/19/17 09:00 11/21/17 09:35 (Valarie-Colace) 1 tab BID PO 11/19/17 21:00 11/20/17 21:59 (Milk Of Magnesia Liq) 30 ml Q12H PRN PO 11/19/17 15:30 (Senokot) 17.2 mg Q12H PRN PO 11/19/17 15:30 (Dulcolax Supp) 10 mg DAILY PRN RECTAL 11/19/17 15:30 (Xylocaine 2% Viscous) 15 ml Q4H PRN SWISH-SWAL 11/19/17 16:00 (Pepcid) 20 mg Q12HR PO 11/19/17 21:00 11/21/17 09:34 Family Psych History Unknown at this time Social History Patient single lives with his sister, though she is unable to this at this time due to her need for surgical procedure Patient's Strengths (min. 2) Patient has supportive family, is cooperative Physical Exam Please see MedSurg assessments Vital Signs Vital Signs Date Time Temp Pulse Resp B/P (MAP) Pulse Ox O2 Delivery O2 Flow Rate FiO2 11/21/17 12:00 96.7 82 16 113/58 (76) 94 11/21/17 07:00 Room Air 2.00 21 I/O 11/21/17 11/21/17 11/21/17 07:59 15:59 23:59 Intake Total 120 ml Output Total 600 ml Balance -480 ml Mental Status Examination Appearance: Disheveled Consciousness: Alert Orientation: Person, Place (vaguely), Date/Time (vaguely) Motor Activity: Other (isolating in bed unable to ascertain) Speech: Pressured, Rapid, Other (speaking Malaysian) Language: Other (difficult to ascertain due to language issues) Fund of Knowledge: Adequate (difficult to ascertain due to language issues) Attention and Concentration: Other (poor) Memory: Impaired Mood: Other (somewhat restricted and irritable) Affect: Other (decreased range increase intensity) Thought Process & Associations: Disorganized Thought Content: Other (disorganized) Hallucination Type: None Delusion Type: None Suicidal Ideation: No Suicidal Plan: No Suicidal Intention: No Homicidal Ideation: No Homicidal Plan: No Homicidal Intention: No Insight: Poor Judgment: Poor Assessment & Plan Problem List: (1) TBI (traumatic brain injury) ICD Codes: S06.9X9A - Unspecified intracranial injury with loss of consciousness of unspecified duration, initial encounter Status: Chronic Assessment & Plan Estimated LOS: days this may be needed to send the patient does not have capacity to make appropriate decisions concerning his care. I discussed this with patient's sister. She is willing to be health care surrogate. I have no recommendations for medication. At this time patient does not meet criteria for further psychiatric assessment thus I will sign off at this time thanks for consult Discharge Planning See above Request HC Surrog/Guard Advoc?: Yes Leon Clark MD Nov 21, 2017 13:00
[2017-11-21] MEDS: GABAPENTIN 300 MG CAP PO SCH (21:35)
[2017-11-22] VITALS (7 sets, daily range): BP systolic 98–116; BP diastolic 66–78; PULSE 82–95; RESP 16–20; TEMP 97.3–99.2; O2SAT 93–97
[2017-11-22] MEDS: PREGABALIN 100 MG CAP PO SCH ×3 (08:10→17:03)
[2017-11-22] MEDS: PANTOPRAZOLE SOD 20 MG DELAYED RELEASE TAB PO SCH (08:10)
[2017-11-22] MEDS: FAMOTIDINE 20 MG TAB PO SCH ×2 (08:10→20:56)
[2017-11-22] MEDS: RIVAROXABAN 20 MG TAB PO SCH (08:11)
[2017-11-22] MEDS: DOCUSATE SODIUM 50 MG/SENNA 8.6 MG TAB PO SCH ×2 (08:11→20:56)
[2017-11-22] MEDS: ASPIRIN 81 MG CHEW TAB CHEW SCH (08:11)
[2017-11-22] MEDS: LACOSAMIDE 50 MG TAB PO SCH ×2 (08:12→20:56)
[2017-11-22] MEDS: levETIRAcetam 500 MG TAB PO SCH ×2 (08:12→20:56)
[2017-11-22] MEDS: FERROUS SULFATE 325 MG (65 MG ELEMENTAL IRON) TAB PO SCH ×3 (08:13→17:03)
[2017-11-22] MEDS: SODIUM CHLORIDE 0.9% FLUSH 10 ML FLUSH IV FLUSH SCH ×2 (08:13→20:56)
--- NOTE | 2017-11-22 12:27 | HHI.PR ---
Subjective Remarks Follow-up chest pain, abdominal pain and difficult placement. Patient seen and examined, sitting on side of bed eating lunch in no apparent distress. Denies any pain or complaints. Slept well. Abdominal pain and chest pain resolved. Vital signs stable. Afebrile. Keppra level pending. No signs of seizures overnight. Objective Vitals Vital Signs Date Time Temp Pulse Resp B/P (MAP) Pulse Ox O2 Delivery O2 Flow Rate FiO2 11/22/17 08:35 96 21 11/22/17 08:00 97.6 82 20 113/67 (82) 95 11/22/17 00:00 97.3 85 18 98/74 (82) 94 11/21/17 20:10 99.5 74 18 118/84 (95) 92 11/21/17 20:10 103 11/21/17 19:20 18 11/21/17 16:00 99.3 87 16 128/74 (92) 94 I/O 11/21/17 11/21/17 11/21/17 11/22/17 11/22/17 11/22/17 07:00 15:00 23:00 07:00 15:00 23:00 Intake Total 120 ml 1320 ml 300 ml 480 ml Output Total 600 ml 901 ml 1500 ml Balance -480 ml 419 ml 300 ml -1020 ml Intake Oral 120 ml 1320 ml 300 ml 480 ml Output Urine Total 600 ml 900 ml 1500 ml Stool Total 1 ml # Voids 2 1 # Bowel Movements 0 3 0 Imaging Last Impressions Myocardial Perfusion Scan Nuc Med 11/19/17 0000 Signed Impressions: Service Date/Time: Sunday, November 19, 2017 11:32 - CONCLUSION: Fixed defect inferior wall suggesting infarct with minimal wall hypokinesis.. RISK CATEGORY : Low (<1%% Annual Mortality Rate) William Darnell MD FACR Abdomen/Pelvis CT 11/19/17 0000 Signed Impressions: Service Date/Time: Sunday, November 19, 2017 12:35 - CONCLUSION: 1. Moderate sized hiatal hernia. 2. Atelectatic changes in the left lower lobe. 3. Minimal pericardial effusion. 4. Enlargement of the prostate. 5. Incidental IVC filter. 6. No findings to indicate bowel obstruction. Willi Darnell MD Objective Remarks GENERAL: Well-nourished, well-developed patient in NAD. Dutch speaking. SKIN: Warm and dry. No rash. HEAD: Normocephalic. Atraumatic. EYES: Pupils equal and round. No scleral icterus. No injection or drainage. ENT: No nasal bleeding or discharge. Mucous membranes pink and moist. NECK: Supple. Trachea midline. CARDIOVASCULAR: Regular rate and rhythm. S1, S2 noted. No murmur appreciated. No reproducible chest pain to palpation. RESPIRATORY: No accessory muscle use. Clear to auscultation. Breath sounds equal bilaterally. GASTROINTESTINAL: Abdomen soft. Round. Normoactive bowel sounds x4. MUSCULOSKELETAL: No obvious deformities. Extremities without clubbing, cyanosis , or edema. NEUROLOGICAL: Awake and alert. No obvious cranial nerve deficits. Flaccid right upper and lower extremities. 5/5 muscle strength in left upper extremities. Normal speech. A/P Problem List: (1) Chest pain ICD Code: R07.9 - Chest pain, unspecified Status: Resolved Plan: Chest pain is resolved. Serial EKGs and serial troponins have been ordered for ruling out ACS purposes. Serial troponins are all flat. Lipid panel is normal. EKG reviewed showing normal sinus rhythm, controlled heart rate, no ST changes to indicate ischemia. Supplemental O2 as needed, comfortable on RA. Chest x-ray reviewed showing no acute cardiopulmonary disease. Patient underwent Lexiscan which showed no presence of ischemia. (2) Abdominal pain ICD Code: R10.9 - Unspecified abdominal pain Status: Resolved Plan: CT abdomen/pelvis performed and reviewed showing moderate hiatal hernia. Spoke to general surgery about patient condition and OK to follow up with GI in the outpatient setting for possible EGD. Continue viscous lidocaine, Zantac and PPI. Abdominal pain has resolved. (3) TBI (traumatic brain injury) ICD Code: S06.9X9A - Unspecified intracranial injury with loss of consciousness of unspecified duration, initial encounter Status: Chronic Plan: Patient has history of seizures, takes Keppra at home. Level pending. Follow. Continue home Vimpat and gabapentin and Lyrica. Labs ordered for a.m., follow. Psychiatry has seen patient. Spoke with daughter at length regarding patient's mental capacity and ability to make decisions. Patient has been deemed incompetent. Sister is health care surrogate. Sister is the primary caregiver for patient, and undergoing surgery soon herself. She states that she is unable to take care of him anymore. Case management is assisting with placement and discharge needs. DVT prophylaxis: Xarelto. Discharge Planning Discharge barriers regarding placement and inability for family to care for patient at home. Case management assisting. Bianca Lo Nov 22, 2017 12:27
[2017-11-22] MEDS: GABAPENTIN 300 MG CAP PO SCH (20:56)
[2017-11-23] VITALS (9 sets, daily range): BP systolic 93–113; BP diastolic 65–83; PULSE 81–95; RESP 16–20; TEMP 97–99.8; O2SAT 94–96
[2017-11-23 07:29] LABS: AUTOMATED NEUTROPHIL # 7.3 TH/MM3 (1.8-7.7); BASOPHIL # 0.3 TH/MM3 (0-0.2); BASOPHIL % 2.6 % (0.0-2.0); EOSINOPHIL # 0.3 TH/MM3 (0-0.4); EOSINOPHIL % 3.1 % (0.0-4.0); HEMATOCRIT 45.8 % (39.0-51.0); HEMOGLOBIN 14.9 GM/DL (13.0-17.0); LYMPH % 14.8 % (9.0-44.0); LYMPHOCYTE # 1.6 TH/MM3 (1.0-4.8); MEAN CELL VOLUME 89.5 FL (80.0-100.0); MEAN CORPUSCULAR HEMOGLOBIN 29.2 PG (27.0-34.0); MEAN CORPUSCULAR HGB CONC 32.6 % (32.0-36.0); MEAN PLATELET VOLUME 8.3 FL (7.0-11.0); MONO % 11.6 % (0.0-8.0); MONOCYTE # 1.3 TH/MM3 (0-0.9); NEUT % 67.9 % (16.0-70.0); PLATELET COUNT 395 TH/MM3 (150-450); RED BLOOD COUNT 5.12 MIL/MM3 (4.50-5.90); RED CELL DISTRIBUTION WIDTH 15.2 % (11.6-17.2); WHITE BLOOD COUNT 10.8 TH/MM3 (4.0-11.0)
[2017-11-23 07:40] LABS: BICARBONATE 24.9 MEQ/L (21.0-32.0)
[2017-11-23 07:43] LABS: CALCIUM 8.8 MG/DL (8.5-10.1); CREATININE 0.92 MG/DL (0.60-1.30)
[2017-11-23] MEDS: FERROUS SULFATE 325 MG (65 MG ELEMENTAL IRON) TAB PO SCH ×3 (08:57→18:00)
[2017-11-23] MEDS: ASPIRIN 81 MG CHEW TAB CHEW SCH (08:57)
[2017-11-23] MEDS: PANTOPRAZOLE SOD 20 MG DELAYED RELEASE TAB PO SCH (08:57)
[2017-11-23] MEDS: PREGABALIN 100 MG CAP PO SCH ×3 (08:57→18:00)
[2017-11-23] MEDS: levETIRAcetam 500 MG TAB PO SCH ×2 (08:57→22:24)
[2017-11-23] MEDS: DOCUSATE SODIUM 50 MG/SENNA 8.6 MG TAB PO SCH ×2 (08:57→22:25)
[2017-11-23] MEDS: RIVAROXABAN 20 MG TAB PO SCH (08:58)
[2017-11-23] MEDS: FAMOTIDINE 20 MG TAB PO SCH ×2 (08:58→22:25)
[2017-11-23] MEDS: SODIUM CHLORIDE 0.9% FLUSH 10 ML FLUSH IV FLUSH SCH ×2 (08:58→22:25)
[2017-11-23] MEDS: LACOSAMIDE 50 MG TAB PO SCH ×2 (09:28→22:25)
--- NOTE | 2017-11-23 12:52 | HHI.DS ---
Discharge Summary Admission Date Nov 18, 2017 at 21:01 Discharge Date: Nov 23, 2017 Admitting Diagnosis Chest pain (1) Chest pain ICD Code: R07.9 - Chest pain, unspecified Status: Resolved (2) Abdominal pain ICD Code: R10.9 - Unspecified abdominal pain Status: Resolved (3) TBI (traumatic brain injury) ICD Code: S06.9X9A - Unspecified intracranial injury with loss of consciousness of unspecified duration, initial encounter Status: Chronic Procedures none Brief History - From Admission This is a 62-year-old male patient with a known medical history of traumatic brain injury as a child and seizure history who presented to the ED with complaints of left-sided chest pain and shaking tremor for two hours. Patient is Urdu speaking and an educational sign language interpreter was used. Patient states that the pain is located in his midsternal chest, characterized as a pressure sensation, radiates down his right and left leg. Denied any associated shortness of breath , nausea, vomiting or diaphoresis. Spoke to at bedside who states that patient suffers from chronic pain normally worse in his right lower extremity. But over the past two weeks she says he's been having increasing and worsening pain in his right chest, arms and abdomen. Denies any recent illness including fever, chills, cough, shortness of breath, nausea, vomiting or diarrhea. 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 CBC/BMP: 11/23/17 0708 11/23/17 0708 Significant Findings Laboratory Tests Test 11/21/17 17:05 11/23/17 07:08 Monocytes (%) (Auto) 11.6 % (0.0-8.0) Basophils (%) (Auto) 2.6 % (0.0-2.0) Monocytes # (Auto) 1.3 TH/MM3 (0-0.9) Basophils # (Auto) 0.3 TH/MM3 (0-0.2) Estimat Glomerular Filtration Rate 84 ML/MIN (>89) PE at Discharge GENERAL: Well-nourished, well-developed patient in NAD. Urdu speaking. SKIN: Warm and dry. No rash. HEAD: Normocephalic. Atraumatic. EYES: Pupils equal and round. No scleral icterus. No injection or drainage. ENT: No nasal bleeding or discharge. Mucous membranes pink and moist. NECK: Supple. Trachea midline. CARDIOVASCULAR: Regular rate and rhythm. S1, S2 noted. No murmur appreciated. No reproducible chest pain to palpation. RESPIRATORY: No accessory muscle use. Clear to auscultation. Breath sounds equal bilaterally. GASTROINTESTINAL: Abdomen soft. Round. Normoactive bowel sounds x4. MUSCULOSKELETAL: No obvious deformities. Extremities without clubbing, cyanosis , or edema. NEUROLOGICAL: Awake and alert. No obvious cranial nerve deficits. Flaccid right upper and lower extremities. 5/5 muscle strength in left upper extremities. Normal speech. Pt update on day of discharge doing well no new issues placement arrangements made Hospital Course Chest pain is resolved with neg EKG and Trops. Lipid panel is normal. CT abdomen/pelvis performed and reviewed showing moderate hiatal hernia. May need out patient Endoscopy Abdominal pain has resolved. Patient with known TBI and history of seizures stable on Keppra, Vimpat and gabapentin and Lyrica. Labs ordered for a.m., follow. Pt Condition on Discharge: Stable Discharge Disposition: Discharge to SNF Discharge Time: > 30 minutes Discharge Instructions DIET: Follow Instructions for: Heart Healthy Diet Activities you can perform: Regular-No Restrictions Follow up Referrals: Gastroenterology - 2 Weeks PCP Follow-up - 1 Week New Medications: Lidocaine Viscous 2% Liq (Lidocaine Viscous 2% Liq) 2 % Liq 15 ML SWISH-SWAL Q4H PRN for reflux for 30 Days, #1 BOTTLE Sennosides-Docusate Sodium (Gnp Senna Plus 8.6-50 mg) 8.6 Mg-50 Mg Tab 1 TAB PO BID for constipation for 30 Days, #60 TAB [Ranitidine Liq] () 150 MG/10 ML SYRP 150 MG PO Q12HR for 30 Days, #1 BOTTLE Continued Medications: Aspirin (Aspirin) 325 Mg Tab 325 MG PO DAILY, #30 TAB 0 Refills Ferrous Sulfate (Ferrous Sulfate) 325 Mg (65 Mg Iron) Tablet 325 MG PO TIDPC for Nutritional Supplement, #90 TAB 0 Refills Furosemide (Lasix) 20 Mg Tab 20 MG PO DAILY PRN for swelling, #30 TAB 0 Refills Gabapentin (Gabapentin) 300 Mg Cap 300 MG PO HS, #30 CAP 0 Refills Lacosamide (Vimpat) 200 Mg Tab MG PO for Control Seizures, #60 TAB 0 Refills Levetiracetam (Levetiracetam) 1,000 Mg Tab 1500 MG PO BID for Control Seizures, #60 TAB 0 Refills Pantoprazole (Protonix) 20 Mg Tab 20 MG PO DAILY for Reflux, #30 TAB 0 Refills Pregabalin (Lyrica) 100 Mg Cap 100 MG PO TID, #90 CAP 0 Refills Rivaroxaban (Xarelto) 20 Mg Tab 20 MG PO DAILY for Blood Clot Prevention, TAB 0 Refills Becca Mcconnell MD Nov 23, 2017 12:51
[2017-11-23] MEDS: GABAPENTIN 300 MG CAP PO SCH (22:25)
[2017-11-23] MEDS: ACETAMINOPHEN 500 MG CPLT PO PRN (22:26)
[2017-11-24 07:50] VITALS: BP 100/63; PULSE 75; RESP 20; TEMP 96.5; O2SAT 93
[2017-11-24] MEDS: LACOSAMIDE 50 MG TAB PO SCH ×2 (09:04→20:51)
[2017-11-24] MEDS: DOCUSATE SODIUM 50 MG/SENNA 8.6 MG TAB PO SCH ×2 (09:04→20:51)
[2017-11-24] MEDS: PANTOPRAZOLE SOD 20 MG DELAYED RELEASE TAB PO SCH (09:05)
[2017-11-24] MEDS: FAMOTIDINE 20 MG TAB PO SCH ×2 (09:05→20:51)
[2017-11-24] MEDS: levETIRAcetam 500 MG TAB PO SCH ×2 (09:05→20:51)
[2017-11-24] MEDS: FERROUS SULFATE 325 MG (65 MG ELEMENTAL IRON) TAB PO SCH ×3 (09:05→18:07)
[2017-11-24] MEDS: ASPIRIN 81 MG CHEW TAB CHEW SCH (09:05)
[2017-11-24] MEDS: RIVAROXABAN 20 MG TAB PO SCH (09:06)
[2017-11-24] MEDS: PREGABALIN 100 MG CAP PO SCH ×3 (09:06→18:07)
[2017-11-24] MEDS: SODIUM CHLORIDE 0.9% FLUSH 10 ML FLUSH IV FLUSH SCH ×2 (09:06→20:52)
[2017-11-24 11:50] VITALS: BP 120/73; PULSE 87; RESP 20; TEMP 98.3; O2SAT 94
--- NOTE | 2017-11-24 12:14 | HHI.PR ---
Subjective Remarks Patient seen today in follow-up for continued discharge planning. No new events overnight Objective Vitals Vital Signs Date Time Temp Pulse Resp B/P (MAP) Pulse Ox O2 Delivery O2 Flow Rate FiO2 11/24/17 10:06 20 11/24/17 08:00 95 Room Air 11/24/17 07:50 96.5 75 20 100/63 (75) 93 11/23/17 23:59 97.5 83 20 93/67 (76) 95 11/23/17 20:00 95 Room Air 11/23/17 20:00 98.6 89 20 108/69 (82) 95 11/23/17 16:00 97.9 88 18 113/76 (88) 94 I/O 11/23/17 11/23/17 11/23/17 11/24/17 11/24/17 11/24/17 06:59 14:59 22:59 06:59 14:59 22:59 Intake Total 480 ml 720 ml 240 ml Output Total 550 ml 900 ml 525 ml Balance -70 ml -180 ml -285 ml Intake Oral 480 ml 720 ml 240 ml Output Urine Total 550 ml 900 ml 525 ml # Voids 3 # Bowel Movements 0 2 0 Result Diagram: 11/23/17 0708 11/23/17 0708 Objective Remarks GENERAL: This is a well-nourished, well-developed patient, in no apparent distress. CARDIOVASCULAR: Regular rate and rhythm without murmurs, gallops, or rubs. RESPIRATORY: Clear to auscultation. Breath sounds equal bilaterally. No wheezes , rales, or rhonchi. GASTROINTESTINAL: Abdomen soft, non-tender, nondistended. Normal active bowel sounds MUSCULOSKELETAL: Extremities without clubbing, cyanosis, or edema. NEURO: Alert & Oriented x4 to person, place, time, situation. Weak Procedures none A/P Problem List: (1) TBI (traumatic brain injury) ICD Code: S06.9X9A - Unspecified intracranial injury with loss of consciousness of unspecified duration, initial encounter Status: Chronic Plan: Patient has history of seizures, takes Keppra at home. Level pending. Follow. Continue home Vimpat and gabapentin and Lyrica. Patient unable to care for self and needs placement Discharge Planning Discharged to SNF plan arrangements made Becca Mcconnell MD Nov 24, 2017 12:14
[2017-11-24 15:50] VITALS: BP 93/61; PULSE 82; RESP 20; TEMP 98.6; O2SAT 96
[2017-11-24 20:00] VITALS: BP 112/62; PULSE 86; RESP 20; TEMP 98.5; O2SAT 95
[2017-11-24] MEDS: GABAPENTIN 300 MG CAP PO SCH (20:51)
[2017-11-25] VITALS: BP 99/58; PULSE 75; RESP 20; TEMP 97.6; O2SAT 94
[2017-11-25 07:50] VITALS: BP 107/80; PULSE 78; RESP 20; TEMP 96.5; O2SAT 96
[2017-11-25] MEDS: SODIUM CHLORIDE 0.9% FLUSH 10 ML FLUSH IV FLUSH SCH (09:00)
[2017-11-25] MEDS: LACOSAMIDE 50 MG TAB PO SCH ×2 (09:15→22:03)
[2017-11-25] MEDS: FAMOTIDINE 20 MG TAB PO SCH ×2 (09:15→22:03)
[2017-11-25] MEDS: PANTOPRAZOLE SOD 20 MG DELAYED RELEASE TAB PO SCH (09:15)
[2017-11-25] MEDS: levETIRAcetam 500 MG TAB PO SCH ×2 (09:15→22:02)
[2017-11-25] MEDS: ASPIRIN 81 MG CHEW TAB CHEW SCH (09:15)
[2017-11-25] MEDS: PREGABALIN 100 MG CAP PO SCH ×3 (09:15→17:25)
[2017-11-25] MEDS: DOCUSATE SODIUM 50 MG/SENNA 8.6 MG TAB PO SCH ×2 (09:15→22:04)
[2017-11-25] MEDS: RIVAROXABAN 20 MG TAB PO SCH (09:15)
[2017-11-25] MEDS: FERROUS SULFATE 325 MG (65 MG ELEMENTAL IRON) TAB PO SCH ×3 (09:16→17:25)
--- NOTE | 2017-11-25 09:18 | HHI.PR ---
Subjective Remarks Patient seen and examined today for follow-up on discharge planning. Patient is sitting at bedside having vital signs performed. Patient denies any new complaints. Vital signs are stable, afebrile. Patient officially discharged on 11/23/17, Awaiting insurance authorization for discharge planning. Objective Vitals Vital Signs Date Time Temp Pulse Resp B/P (MAP) Pulse Ox O2 Delivery O2 Flow Rate FiO2 11/25/17 00:00 97.6 75 20 99/58 (72) 94 11/24/17 20:00 98.5 86 20 112/62 (79) 95 11/24/17 20:00 95 Room Air 11/24/17 15:50 98.6 82 20 93/61 (72) 96 11/24/17 14:32 20 11/24/17 11:50 98.3 87 20 120/73 (89) 94 I/O 11/24/17 11/24/17 11/24/17 11/25/17 11/25/17 11/25/17 07:00 15:00 23:00 07:00 15:00 23:00 Intake Total 240 ml 521 ml 120 ml Output Total 525 ml 250 ml 825 ml Balance -285 ml 271 ml -705 ml Intake Oral 240 ml 521 ml 120 ml Output Urine Total 525 ml 250 ml 825 ml # Voids 3 4 2 # Bowel Movements 0 2 0 Result Diagram: 11/23/17 0708 11/23/17 0708 Objective Remarks GENERAL: Well-developed, well-nourished, in no acute distress. alert HEENT: Head is normocephalic without any lesions or masses noted. Facial features are symmetric. Eyes: Extraocular muscles are intact. Conjunctivae were clear. NECK: Supple without any masses. Trachea midline no deviation. No JVD, CARDIAC: Regular rhythm, regular rate. S1/S2 are heard. No murmurs gallops or rubs. LUNGS: Clear to auscultation bilaterally. No wheeze, rhonchi or rales. No use of accessory muscles on inspiration or expiration. ABDOMEN: Soft, nontender. Nondistended. Bowel sounds heard in all 4 quadrants. No organomegaly or masses. Negative rebound, negative guarding EXTREMITIES: No edema, pulses are equal bilaterally. No cyanosis or clubbing NEUROLOGY: Mood and affect appear appropriate. Cranial nerves II through XII grossly intact. Moving all extremities, speech is clear Procedures none Urinary Catheter: No Vascular Central Line Catheter: No A/P Assessment and Plan History of traumatic brain injury and seizures Patient continued on Keppra, Vimpat, gabapentin, Lyrica Keppra level 43.6 which is in normal range Patient unable to care for self continue PT/OT Case management trying to arrange correction placement, however, insurance denied placement DVT prevention Patient is on Xarelto Discharge Planning Discharge to correction facility once arrangements made by case management Daniel Joshi Nov 25, 2017 09:18
[2017-11-25] MEDS ORDERED: ONDANSETRON ODT 4 MG TAB PO PRN (09:45)
[2017-11-25 11:50] VITALS: BP 99/64; PULSE 86; RESP 20; TEMP 96.7; O2SAT 95
[2017-11-25] MEDS: GABAPENTIN 100 MG CAP PO SCH ×2 (14:18→17:25)
[2017-11-25 15:50] VITALS: BP 105/70; PULSE 85; RESP 20; TEMP 98.6; O2SAT 93
[2017-11-25 20:00] VITALS: BP 131/88; PULSE 91; RESP 20; TEMP 97.3; O2SAT 95
[2017-11-25] MEDS ORDERED: ACETAMINOPHEN/HYDROcodone 325 MG/5 MG TAB PO ONE (21:00)
[2017-11-26] VITALS: BP 109/70; PULSE 79; RESP 20; TEMP 96.4; O2SAT 95
[2017-11-26] MEDS: ACETAMINOPHEN 500 MG CPLT PO PRN (06:28)
[2017-11-26 08:00] VITALS: BP 115/56; PULSE 92; RESP 15; TEMP 97.3; O2SAT 92
--- NOTE | 2017-11-26 08:30 | HHI.PR ---
Subjective Remarks Patient seen and examined today for follow-up on discharge planning. Patient sitting at bedside eating breakfast. States that his right leg pain is improved after adjustment of Neurontin. He denies any other complaints. Vital signs are stable, afebrile Objective Vitals Vital Signs Date Time Temp Pulse Resp B/P (MAP) Pulse Ox O2 Delivery O2 Flow Rate FiO2 11/26/17 00:00 96.4 79 20 109/70 (83) 95 11/25/17 20:00 97.3 91 20 131/88 (102) 95 11/25/17 20:00 95 Room Air 11/25/17 20:00 97.3 91 20 131/88 (102) 95 11/25/17 15:50 98.6 85 20 105/70 (82) 93 11/25/17 11:50 96.7 86 20 99/64 (76) 95 11/25/17 09:15 95 Room Air I/O 11/25/17 11/25/17 11/25/17 11/26/17 11/26/17 11/26/17 07:00 15:00 23:00 07:00 15:00 23:00 Intake Total 120 ml 720 ml 120 ml Output Total 825 ml 350 ml 450 ml Balance -705 ml 370 ml -330 ml Intake Oral 120 ml 720 ml 120 ml Output Urine Total 825 ml 350 ml 450 ml # Voids 2 # Bowel Movements 0 2 0 Result Diagram: 11/23/17 0708 11/23/17 0708 Objective Remarks GENERAL: Well-developed, well-nourished, in no acute distress. alert HEENT: Head is normocephalic without any lesions or masses noted. Facial features are symmetric. Eyes: Extraocular muscles are intact. Conjunctivae were clear. NECK: Supple without any masses. Trachea midline no deviation. No JVD, CARDIAC: Regular rhythm, regular rate. S1/S2 are heard. No murmurs gallops or rubs. LUNGS: Clear to auscultation bilaterally. No wheeze, rhonchi or rales. No use of accessory muscles on inspiration or expiration. ABDOMEN: Soft, nontender. Nondistended. Bowel sounds heard in all 4 quadrants. No organomegaly or masses. Negative rebound, negative guarding EXTREMITIES: No edema, pulses are equal bilaterally. No cyanosis or clubbing NEUROLOGY: Mood and affect appear appropriate. Cranial nerves II through XII grossly intact. Moving all extremities, speech is clear Procedures none Urinary Catheter: No Vascular Central Line Catheter: No A/P Assessment and Plan History of traumatic brain injury and seizures Patient continued on Keppra, Vimpat, gabapentin, Lyrica Keppra level 43.6 which is in normal range Patient unable to care for self continue PT/OT, PT indicating PT at rehabilitation Case management trying to arrange senior living placement, however, insurance denied placement Peripheral neuropathy Continue Lyrica Increase to gabapentin 200 mg 3 times daily DVT prevention Patient is on Xarelto Discharge Planning Case management working diligently on discharge planning. Daniel Joshi Nov 26, 2017 08:30
[2017-11-26] MEDS: FERROUS SULFATE 325 MG (65 MG ELEMENTAL IRON) TAB PO SCH ×3 (09:24→17:24)
[2017-11-26] MEDS: DOCUSATE SODIUM 50 MG/SENNA 8.6 MG TAB PO SCH ×2 (09:24→20:06)
[2017-11-26] MEDS: PREGABALIN 100 MG CAP PO SCH ×3 (09:24→17:24)
[2017-11-26] MEDS: ASPIRIN 81 MG CHEW TAB CHEW SCH (09:24)
[2017-11-26] MEDS: GABAPENTIN 100 MG CAP PO SCH ×3 (09:25→17:24)
[2017-11-26] MEDS: levETIRAcetam 500 MG TAB PO SCH ×2 (09:25→20:06)
[2017-11-26] MEDS: FAMOTIDINE 20 MG TAB PO SCH ×2 (09:25→20:06)
[2017-11-26] MEDS: LACOSAMIDE 50 MG TAB PO SCH ×2 (09:25→20:06)
[2017-11-26] MEDS: RIVAROXABAN 20 MG TAB PO SCH (09:25)
[2017-11-26 12:00] VITALS: BP 116/75; PULSE 88; RESP 16; TEMP 98.5; O2SAT 97
[2017-11-26 16:00] VITALS: BP 158/89; PULSE 96; RESP 17; TEMP 98.1; O2SAT 97
[2017-11-26 20:00] VITALS: BP 123/82; PULSE 101; RESP 20; TEMP 99; O2SAT 93
[2017-11-27] VITALS: BP 111/77; PULSE 91; RESP 20; TEMP 98.6; O2SAT 96
[2017-11-27 08:00] VITALS: BP 118/72; PULSE 91; RESP 18; TEMP 98.6; O2SAT 95
[2017-11-27] MEDS: RIVAROXABAN 20 MG TAB PO SCH (09:00)
[2017-11-27] MEDS: PREGABALIN 100 MG CAP PO SCH ×2 (09:00→15:01)
[2017-11-27] MEDS: ASPIRIN 81 MG CHEW TAB CHEW SCH (09:00)
[2017-11-27] MEDS: FAMOTIDINE 20 MG TAB PO SCH ×2 (09:00→19:47)
[2017-11-27] MEDS: levETIRAcetam 500 MG TAB PO SCH ×2 (09:00→19:48)
[2017-11-27] MEDS: LACOSAMIDE 50 MG TAB PO SCH ×2 (09:00→19:48)
[2017-11-27] MEDS: DOCUSATE SODIUM 50 MG/SENNA 8.6 MG TAB PO SCH ×2 (09:00→19:48)
[2017-11-27] MEDS: GABAPENTIN 100 MG CAP PO SCH ×3 (09:00→18:56)
[2017-11-27] MEDS: FERROUS SULFATE 325 MG (65 MG ELEMENTAL IRON) TAB PO SCH ×3 (09:30→18:56)
--- NOTE | 2017-11-27 11:47 | HHI.PR ---
Subjective Remarks Patient seen and examined today for follow-up on discharge planning. Patient denies any new complaints. States that his pain is improved since changing medication. I was notified by nursing staff that the sister called yesterday evening to state that the patient called her to notify her that he had a seizure in the room. There is no witnessed seizure by nursing staff. The sister indicates that the reason why she feels he has a seizure is because we have not gotten him placed into a correction yet. Case management is working diligently on placement. However patient insurance is not paying for any type of placement at this time. I notified that the sister is not wanting to take him back home with her because she is planning on having some form of surgery soon and she cannot take care of him anymore. Objective Vitals Vital Signs Date Time Temp Pulse Resp B/P (MAP) Pulse Ox O2 Delivery O2 Flow Rate FiO2 11/27/17 08:00 98.6 91 18 118/72 (87) 95 11/27/17 00:00 98.6 91 20 111/77 (88) 96 11/26/17 20:35 Room Air 11/26/17 20:00 99.0 101 20 123/82 (96) 93 11/26/17 18:24 20 11/26/17 16:00 98.1 96 17 158/89 (112) 97 11/26/17 12:00 98.5 88 16 116/75 (89) 97 I/O 11/26/17 11/26/17 11/26/17 11/27/17 11/27/17 11/27/17 07:00 15:00 23:00 07:00 15:00 23:00 Intake Total 120 ml 480 ml 720 ml Output Total 450 ml 200 ml 1250 ml Balance -330 ml 280 ml -530 ml Intake Oral 120 ml 480 ml 720 ml Output Urine Total 450 ml 200 ml 1250 ml # Voids 1 # Bowel Movements 0 0 0 Result Diagram: 11/23/17 0708 11/23/17 07 Objective Remarks GENERAL: Well-developed, well-nourished, in no acute distress. alert HEENT: Head is normocephalic without any lesions or masses noted. Facial features are symmetric. Eyes: Extraocular muscles are intact. Conjunctivae were clear. NECK: Supple without any masses. Trachea midline no deviation. No JVD, CARDIAC: Regular rhythm, regular rate. S1/S2 are heard. No murmurs gallops or rubs. LUNGS: Clear to auscultation bilaterally. No wheeze, rhonchi or rales. No use of accessory muscles on inspiration or expiration. ABDOMEN: Soft, nontender. Nondistended. Bowel sounds heard in all 4 quadrants. No organomegaly or masses. Negative rebound, negative guarding EXTREMITIES: No edema, pulses are equal bilaterally. No cyanosis or clubbing NEUROLOGY: Mood and affect appear appropriate. Cranial nerves II through XII grossly intact. Moving all extremities, speech is clear Procedures none Urinary Catheter: No Vascular Central Line Catheter: No A/P Assessment and Plan History of traumatic brain injury and seizures Patient continued on Keppra, Vimpat, gabapentin, Lyrica Keppra level 43.6 which is in normal range Patient unable to care for self continue PT/OT, PT indicating PT at rehabilitation Case management trying to arrange long term placement, however, insurance denied placement Peripheral neuropathy Continue Lyrica Increase to gabapentin 200 mg 3 times daily DVT prevention Patient is on Xarelto Discharge Planning Case management working diligently on discharge planning. Daniel Joshi Nov 27, 2017 11:47
[2017-11-27 12:00] VITALS: BP 117/75; PULSE 92; RESP 18; TEMP 98.8; O2SAT 96
[2017-11-27] MEDS: ACETAMINOPHEN 500 MG CPLT PO PRN (15:02)
[2017-11-27 16:00] VITALS: BP 129/76; PULSE 86; RESP 18; TEMP 98.5; O2SAT 95
[2017-11-27 20:00] VITALS: BP 110/58; PULSE 84; RESP 16; TEMP 98; O2SAT 95
[2017-11-27] MEDS ORDERED: GABAPENTIN 300 MG CAP PO SCH (21:00)
[2017-11-28] VITALS: BP 113/70; PULSE 79; RESP 16; TEMP 96.4; O2SAT 96
[2017-11-28 08:00] VITALS: BP 104/64; PULSE 81; RESP 16; TEMP 96.8; O2SAT 95
--- NOTE | 2017-11-28 08:27 | HHI.PR ---
Subjective Remarks Patient seen and examined today for follow-up on discharge planning. Patient states that leg pain is worse since adjusting medications. awaiting case management for discharge planning Objective Vitals Vital Signs Date Time Temp Pulse Resp B/P (MAP) Pulse Ox O2 Delivery O2 Flow Rate FiO2 11/28/17 00:00 96.4 79 16 113/70 (84) 96 11/27/17 20:00 98.0 84 16 110/58 (75) 95 11/27/17 19:00 95 Room Air 11/27/17 16:48 18 11/27/17 16:46 Room Air 2.00 21 11/27/17 16:36 18 11/27/17 16:00 98.5 86 18 129/76 (93) 95 11/27/17 14:55 18 11/27/17 12:00 98.8 92 18 117/75 (89) 96 I/O 11/27/17 11/27/17 11/27/17 11/28/17 11/28/17 11/28/17 06:59 14:59 22:59 06:59 14:59 22:59 Intake Total 720 ml 480 ml 240 ml Output Total 1250 ml 300 ml 575 ml Balance -530 ml 180 ml -335 ml Intake Oral 720 ml 480 ml 240 ml Output Urine Total 1250 ml 300 ml 575 ml # Voids 2 # Bowel Movements 0 1 0 Objective Remarks GENERAL: Well-developed, well-nourished, in no acute distress. alert HEENT: Head is normocephalic without any lesions or masses noted. Facial features are symmetric. Eyes: Extraocular muscles are intact. Conjunctivae were clear. NECK: Supple without any masses. Trachea midline no deviation. No JVD, CARDIAC: Regular rhythm, regular rate. S1/S2 are heard. No murmurs gallops or rubs. LUNGS: Clear to auscultation bilaterally. No wheeze, rhonchi or rales. No use of accessory muscles on inspiration or expiration. ABDOMEN: Soft, nontender. Nondistended. Bowel sounds heard in all 4 quadrants. No organomegaly or masses. Negative rebound, negative guarding EXTREMITIES: No edema, pulses are equal bilaterally. No cyanosis or clubbing NEUROLOGY: Mood and affect appear appropriate. Cranial nerves II through XII grossly intact. Moving all extremities, speech is clear Procedures none Urinary Catheter: No Vascular Central Line Catheter: No A/P Assessment and Plan History of traumatic brain injury and seizures Patient continued on Keppra, Vimpat, gabapentin, Lyrica Keppra level 43.6 which is in normal range Patient unable to care for self continue PT/OT, PT indicating PT at rehabilitation Case management trying to arrange senior living placement, however, insurance denied placement Peripheral neuropathy Discontinue Lyrica Increased to gabapentin 300 mg 3 times daily DVT prevention Patient is on Xarelto Discharge Planning Case management working diligently on discharge planning. Daniel Joshi Nov 28, 2017 08:27
[2017-11-28] MEDS: ASPIRIN 81 MG CHEW TAB CHEW SCH (08:59)
[2017-11-28] MEDS: LACOSAMIDE 50 MG TAB PO SCH ×2 (08:59→22:46)
[2017-11-28] MEDS: DOCUSATE SODIUM 50 MG/SENNA 8.6 MG TAB PO SCH ×2 (08:59→22:45)
[2017-11-28] MEDS: GABAPENTIN 100 MG CAP PO SCH (08:59)
[2017-11-28] MEDS: FERROUS SULFATE 325 MG (65 MG ELEMENTAL IRON) TAB PO SCH ×3 (08:59→17:21)
[2017-11-28] MEDS: levETIRAcetam 500 MG TAB PO SCH ×2 (08:59→22:46)
[2017-11-28] MEDS: RIVAROXABAN 20 MG TAB PO SCH (08:59)
[2017-11-28] MEDS: FAMOTIDINE 20 MG TAB PO SCH ×2 (08:59→22:46)
[2017-11-28 12:00] VITALS: BP 106/78; PULSE 100; RESP 18; TEMP 98.6; O2SAT 95
[2017-11-28] MEDS: GABAPENTIN 300 MG CAP PO SCH ×2 (14:21→17:21)
[2017-11-28 16:00] VITALS: BP 116/73; PULSE 86; RESP 18; TEMP 97.4; O2SAT 97
[2017-11-28 20:00] VITALS: BP 119/75; PULSE 92; RESP 20; TEMP 98.4; O2SAT 94
[2017-11-29] VITALS: BP 118/77; PULSE 77; RESP 20; TEMP 97.5; O2SAT 96
[2017-11-29 04:00] VITALS: BP 96/62; PULSE 69; RESP 16; TEMP 97.4; O2SAT 95
[2017-11-29 08:00] VITALS: BP 107/80; PULSE 89; RESP 18; TEMP 98; O2SAT 98
[2017-11-29] MEDS: levETIRAcetam 500 MG TAB PO SCH ×2 (11:03→21:39)
--- NOTE | 2017-11-29 11:03 | HHI.PR ---
Subjective Remarks Patient seen and examined today for follow-up on discharge planning. Patient has been discharged since 11/23/17. Unfortunately patient's insurance will not allow [facility] facility. Case management has working diligently on helping the family with skilled facility arrangements, however haven't been successful thus far. Patient clinically stable to return home with home health care. Will work with case management for arrangements Objective Vitals Vital Signs Date Time Temp Pulse Resp B/P (MAP) Pulse Ox O2 Delivery O2 Flow Rate FiO2 11/29/17 08:00 98.0 89 18 107/80 (89) 98 11/29/17 04:00 97.4 69 16 96/62 (73) 95 11/29/17 00:00 97.5 77 20 118/77 (91) 96 11/28/17 20:00 98.4 92 20 119/75 (90) 94 11/28/17 19:00 96 Nasal Cannula 2.00 11/28/17 16:00 97.4 86 18 116/73 (87) 97 11/28/17 12:00 98.6 100 18 106/78 (87) 95 11/28/17 11:21 Room Air 2.00 21 I/O 11/28/17 11/28/17 11/28/17 11/29/17 11/29/17 11/29/17 07:00 15:00 23:00 07:00 15:00 23:00 Intake Total 240 ml 480 ml 580 ml 480 ml Output Total 575 ml 200 ml 850 ml 1000 ml Balance -335 ml 280 ml -270 ml -520 ml Intake Oral 240 ml 480 ml 580 ml 480 ml Output Urine Total 575 ml 200 ml 850 ml 1000 ml # Bowel Movements 0 0 0 Objective Remarks GENERAL: Well-developed, well-nourished, in no acute distress. alert HEENT: Head is normocephalic without any lesions or masses noted. Facial features are symmetric. Eyes: Extraocular muscles are intact. Conjunctivae were clear. NECK: Supple without any masses. Trachea midline no deviation. No JVD, CARDIAC: Regular rhythm, regular rate. S1/S2 are heard. No murmurs gallops or rubs. LUNGS: Clear to auscultation bilaterally. No wheeze, rhonchi or rales. No use of accessory muscles on inspiration or expiration. ABDOMEN: Soft, nontender. Nondistended. Bowel sounds heard in all 4 quadrants. No organomegaly or masses. Negative rebound, negative guarding EXTREMITIES: No edema, pulses are equal bilaterally. No cyanosis or clubbing NEUROLOGY: Mood and affect appear appropriate. Cranial nerves II through XII grossly intact. Moving all extremities, speech is clear Procedures none Urinary Catheter: No Vascular Central Line Catheter: No A/P Assessment and Plan History of traumatic brain injury and seizures Patient continued on Keppra, Vimpat, gabapentin, Lyrica Keppra level 43.6 which is in normal range Patient unable to care for self continue PT/OT, PT indicating PT at rehabilitation Case management trying to arrange usp placement, however, insurance denied placement History of seizures, likely intractable seizures Family indicate patient was having seizures/convulsions Upon entering the room as indicated patient had some left-sided tremors. However patient was alert and talking during these episodes, no loss of bowel or bladder control Patient is already on Keppra, Vimpat, gabapentin Previous EEG showed bilateral sharp at times some high amplitude sharp that are seen on the right hemisphere. Some lower ones on the left especially in the temporal head region. No prolonged seizures were noted Offered family repeat EEG and they were satisfied, awaiting results Peripheral neuropathy Discontinue Lyrica Increased to gabapentin 300 mg 3 times daily DVT prevention Patient is on Xarelto Discharge Planning Case management to arrange discharge either to [facility] facility, home with home health care whichever can be accomplished Daniel Joshi Nov 29, 2017 11:03
[2017-11-29] MEDS: FAMOTIDINE 20 MG TAB PO SCH ×2 (11:04→21:39)
[2017-11-29] MEDS: DOCUSATE SODIUM 50 MG/SENNA 8.6 MG TAB PO SCH ×2 (11:05→21:39)
[2017-11-29] MEDS: ASPIRIN 81 MG CHEW TAB CHEW SCH (11:05)
[2017-11-29] MEDS: GABAPENTIN 300 MG CAP PO SCH ×3 (11:05→18:47)
[2017-11-29] MEDS: RIVAROXABAN 20 MG TAB PO SCH (11:05)
[2017-11-29] MEDS: FERROUS SULFATE 325 MG (65 MG ELEMENTAL IRON) TAB PO SCH ×3 (11:06→18:46)
[2017-11-29] MEDS: LACOSAMIDE 50 MG TAB PO SCH ×2 (11:06→21:39)
[2017-11-29 12:00] VITALS: BP 110/78; PULSE 88; RESP 18; TEMP 98; O2SAT 97
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
[2017-11-29 16:00] VITALS: BP 106/83; PULSE 89; RESP 18; TEMP 98.2; O2SAT 97
[2017-11-29 20:00] VITALS: BP 113/73; PULSE 90; RESP 18; TEMP 97.7; O2SAT 92
[2017-11-30] VITALS: BP 110/72; PULSE 88; RESP 16; TEMP 96.8; O2SAT 92
[2017-11-30 08:00] VITALS: BP 110/60; PULSE 80; RESP 18; TEMP 98.1; O2SAT 97
[2017-11-30] MEDS: RIVAROXABAN 20 MG TAB PO SCH (09:16)
[2017-11-30] MEDS: FAMOTIDINE 20 MG TAB PO SCH (09:16)
[2017-11-30] MEDS: FERROUS SULFATE 325 MG (65 MG ELEMENTAL IRON) TAB PO SCH (09:16)
[2017-11-30] MEDS: DOCUSATE SODIUM 50 MG/SENNA 8.6 MG TAB PO SCH (09:16)
[2017-11-30] MEDS: GABAPENTIN 300 MG CAP PO SCH (09:16)
[2017-11-30] MEDS: ASPIRIN 81 MG CHEW TAB CHEW SCH (09:17)
[2017-11-30] MEDS: levETIRAcetam 500 MG TAB PO SCH (09:17)
[2017-11-30] MEDS: LACOSAMIDE 50 MG TAB PO SCH (09:18)
[2017-11-30 12:00] VITALS: BP 108/60; PULSE 78; RESP 18; TEMP 98; O2SAT 95
[2017-11-30] MEDS ORDERED: NEUR300C PO (12:21)
--- NOTE | 2017-11-30 12:22 | HHI.PR ---
Subjective Remarks Patient seen and examined today for follow-up on discharge planning. Patient has been discharged since 11/23/17. Unfortunately patient's insurance will not allow residential facility. Case management has working diligently on helping the family with skilled facility arrangements, however haven't been successful thus far. Patient clinically stable to return home with home health care. Plan is for sister to berry picker patient today and bring home. Objective Vitals Vital Signs Date Time Temp Pulse Resp B/P (MAP) Pulse Ox O2 Delivery O2 Flow Rate FiO2 11/30/17 08:30 Room Air 2.00 21 11/30/17 08:00 98.1 80 18 110/60 (77) 97 11/30/17 00:00 96.8 88 16 110/72 (85) 92 11/29/17 20:00 97.7 90 18 113/73 (86) 92 11/29/17 19:00 92 Room Air 11/29/17 16:00 98.2 89 18 106/83 (91) 97 I/O 11/29/17 11/29/17 11/29/17 11/30/17 11/30/17 11/30/17 07:00 15:00 23:00 07:00 15:00 23:00 Intake Total 480 ml Output Total 1000 ml Balance -520 ml Intake Oral 480 ml Output Urine Total 1000 ml # Bowel Movements 0 Imaging Last Impressions Myocardial Perfusion Scan Nuc Med 11/19/17 0000 Signed Impressions: Service Date/Time: Sunday, November 19, 2017 11:32 - CONCLUSION: Fixed defect inferior wall suggesting infarct with minimal wall hypokinesis.. RISK CATEGORY : Low (<1%% Annual Mortality Rate) William Darnell MD FACR Abdomen/Pelvis CT 11/19/17 0000 Signed Impressions: Service Date/Time: Sunday, November 19, 2017 12:35 - CONCLUSION: 1. Moderate sized hiatal hernia. 2. Atelectatic changes in the left lower lobe. 3. Minimal pericardial effusion. 4. Enlargement of the prostate. 5. Incidental IVC filter. 6. No findings to indicate bowel obstruction. Willi Darnell MD Objective Remarks GENERAL: Well-nourished, well-developed patient in NAD. Urdu speaking. SKIN: Warm and dry. No rash. HEAD: Normocephalic. Atraumatic. EYES: Pupils equal and round. No scleral icterus. No injection or drainage. ENT: No nasal bleeding or discharge. Mucous membranes pink and moist. NECK: Supple. Trachea midline. CARDIOVASCULAR: Regular rate and rhythm. S1, S2 noted. No murmur appreciated. No reproducible chest pain to palpation. RESPIRATORY: No accessory muscle use. Clear to auscultation. Breath sounds equal bilaterally. GASTROINTESTINAL: Abdomen soft. Round. Normoactive bowel sounds x4. MUSCULOSKELETAL: No obvious deformities. Extremities without clubbing, cyanosis , or edema. NEUROLOGICAL: Awake and alert. No obvious cranial nerve deficits. Flaccid right upper and lower extremities. 5/5 muscle strength in left upper extremities. Normal speech. Procedures none A/P Assessment and Plan History of traumatic brain injury and seizures Patient continued on Keppra, Vimpat, gabapentin, Lyrica Keppra level 43.6 which is in normal range Patient unable to care for self PT indicating PT at rehabilitation. Case management attempted to arrange residential placement, however, insurance denied placement. History of seizures, likely intractable seizures Family indicate patient was having seizures/convulsions Upon entering the room as indicated patient had some left-sided tremors. However patient was alert and talking during these episodes, no loss of bowel or bladder control Patient is already on Keppra, Vimpat, gabapentin Previous EEG showed bilateral sharp at times some high amplitude sharp that are seen on the right hemisphere. Some lower ones on the left especially in the temporal head region. No prolonged seizures were noted Offered family repeat EEG and follow-up showing abnormal EEG due to sharply of [age] bilaterally as well as phase reversals concerning for epileptic potentials in this patient with a known history of epilepsy. Peripheral neuropathy Discontinue Lyrica Increased to gabapentin 300 mg 3 times daily DVT prevention Patient is on Xarelto Discharge Planning Plan is for patient to discharge home today with sister. Bianca Lo Nov 30, 2017 12:22
--- NOTE | 2017-11-30 12:23 | HHI.FF ---
Face to Face Verification Diagnosis: (1) TBI (traumatic brain injury) Home Health Nursing Order: Medical education Signs/symptoms of disease process Medication education-adverse effect Home Health Aide Order: To Assist In: Bathing and personal care, boarding house cook and meal prep Property Worker Order: To Evaluate: Living conditions/environment Order: To Provide: Long range planning I have seen patient Manfred Stern on 11/30/17. My clinical findings support the need for the requested home health care services because: Ltd mobility - disease progression Limited ability to care for self I certify that my clinical findings support that this patient is homebound because: Unsteady gait/balance Becca Mcconnell MD Nov 30, 2017 12:23
== END 2017-11-30 13:29 | disposition home or self-care (01) ==
LOC: PHEDDLT 21:00 → PH3A 21:01 → PH3B 11-22 22:08
PROVIDERS: ADMIT Hospitalist; ATTEND Hospitalist
DX: R07.89 Other chest pain (principal); R10.11 Right upper quadrant pain; R06.00 Dyspnea, unspecified; R11.0 Nausea; R14.0 Abdominal distension (gaseous); R94.31 Abnormal electrocardiogram [ECG] [EKG]; R25.1 Tremor, unspecified; I20.9 Angina pectoris, unspecified; E78.5 Hyperlipidemia, unspecified; K44.9 Diaphragmatic hernia without obstruction or gangrene; G89.29 Other chronic pain; I31.3 Pericardial effusion (noninflammatory); I69.351 Hemiplegia and hemiparesis following cerebral infarction affecting right dominant side; F41.9 Anxiety disorder, unspecified; N40.0 Benign prostatic hyperplasia without lower urinary tract symptoms; M19.90 Unspecified osteoarthritis, unspecified site; Z79.899 Other long term (current) drug therapy; Z79.82 Long term (current) use of aspirin; Z79.01 Long term (current) use of anticoagulants; Z87.820 Personal history of traumatic brain injury
CPT/HCPCS: 70450; 71045; 74177; 78452; 80048; 80061; 80177; 82550; 83735; 83880; 84484; 85025; 85610; 85730; 93005; 93017; 95819; 96125; 96374; 96375; 97110; 97116; 97162; 97166; 97535; 99285; A9502; G0378; G8987; G8988; G9168; G9169; G9170; J2270; J2405; J2785; Q9967